=== PATIENT | female | born 1990 | race Caucasian/White ===

== ENCOUNTER 2016-09-06 19:33 | Inpatient (IN) ==
[2016-09-06 20:20] LABS: Bilirubin,Urine Negative (Negative); Blood,Urine Moderate (Negative); Clarity,Urine Turbid (Clear); Color,Urine Dark Yellow (Yellow); Glucose,Urine (UA) Normal (Normal); Ketones,Urine 15 mg/dL (Negative); Leukocyte Esterase,Urine Large (Negative); Nitrite,Urine Negative (Negative); Protein,Urine 100 mg/dL (Neg-Trace); Specific Gravity,Urine 1.026 (1.010-1.025); Urobilinogen,Urine Normal (Normal)
[2016-09-06 20:22] LABS: Bacteria,Urine Few per hpf (None-Few); Hyaline Casts,Urine None Seen per lpf (None-Few); Squamous Epithelial Cell,Urine Many per lpf (None-Few); WBC,Urine TNTC per hpf (0-3)
[2016-09-06 21:26] LABS: Hemoglobin 13.8 g/dL (11.5-15.4)
[2016-09-06 21:27] LABS: Basophils % 0.2 %; Immature Granulocytes % 0.7 % (0-4)
[2016-09-06 21:28] LABS: Basophils # 0.1 K/mcL (0.0-0.2); Eosinophils % 0.1 %; Hematocrit 40.5 % (35.3-44.9); Lymphocytes # 1.6 K/mcL (0.6-4.6); Mean Corpuscular HGB Conc 34.1 g/dL (31.6-35.5); Mean Corpuscular Hemoglobin 30.6 pg (28.0-33.3); Mean Corpuscular Volume 89.8 fL (83.0-100.0); Mean Platelet Volume 10.5 fL (9.4-12.4); Monocytes # 2.3 K/mcL (0.0-1.3); Monocytes % 8.5 %; Platelet Count 201 K/mcL (140-400); Red Blood Count 4.51 M/mcL (3.82-4.97); Segmented Neutrophils % 84.5 %
[2016-09-06 21:47] LABS: Alanine Aminotransferase 80 Units/L (0-55); Albumin 3.8 g/dL (3.5-5.0); Alkaline Phosphatase 88 Units/L (38-126); Amylase 50 Units/L (25-125); Aspartate Amino Transferase 43 Units/L (5-34); BUN/Creatinine Ratio 12 (6-26); Bilirubin,Direct 0.7 mg/dL (0.0-0.5); Bilirubin,Total 1.7 mg/dL (0.2-1.2); Blood Urea Nitrogen 9 mg/dL (7-20); Calcium 9.6 mg/dL (8.6-10.8); Carbon Dioxide 23 mEq/L (19-29); Chloride 105 mEq/L (98-109); Globulin 3.9 g/dL (2.4-3.5); Glucose 108 mg/dL (70-99); Lipase 10 Units/L (8-78); Osmolality,Calculated 285 (280-300); Potassium 3.7 mEq/L (3.5-4.5); Sodium 138 mEq/L (136-145); Total Protein 7.7 g/dL (6.0-8.3); eGFR For African Americans > 60 (> 60); eGFR For Non-African Americans > 60 (> 60)
[2016-09-06] MEDS ORDERED: *HR* FentaNYL (PF) 100 MCG/2 ML VIAL IVP ONE (22:03)
[2016-09-06] MEDS ORDERED: Ondansetron 4 MG/2 ML VIAL IVP ONE (22:03)
[2016-09-06 22:12] LABS: Platelet Estimate Normal (Normal)
--- NOTE | 2016-09-06 23:18 | Emergency Department Note ---
Disposition Clinical Impression: Right ureteral stone, Hydronephrosis, right, Pyelonephritis, Gallstones Disposition: Admitted As Inpatient Condition: Good Referrals: Juju Sue DO [Primary Care Provider] - Forms: Work/School Release, ED Satisfaction Letter Time of Disposition: 23:22 Abdominal Pain HPI - General Chief Complaint: ED Abdominal Pain Stated Complaint: right lower abdominal pain,vomiting fever Time Seen by Provider: 09/06/16 21:52 Source: patient Nursing Notes Reviewed: Yes Vital Signs Reviewed: Yes - History of Present Illness HPI Narrative: 25 of female presents emergency room for right-sided abdominal pain for the past 3 days. Worsening today. Associated with nausea vomiting. She denies any diarrhea. No documented fevers. Pain is gotten to be more persistent in the right lateral abdomen. Pt Subjective Complaint: abdominal pain Onset (ago): day(s) Consistency: constant Location: RLQ Pain Severity: severe Pain Scale: 10 Quality: stabbing Radiation: none Migration to: no migration Improves with: nothing Worsens with: nothing Associated symptoms: Reports: nausea, vomiting. Denies: fever Treatments prior to arrival: none - Related Data Previous Rx's Medication Instructions Recorded Nitrofurantoin (BID) [Macrobid] 100 mg PO BID #14 capsule 03/07/16 Allergies Allergy/AdvReac Type Severity Reaction Status Date / Time hydrocodone Allergy See Verified 09/06/16 19:48 Comments morphine Allergy Rash Verified 03/07/16 11:18 All systems ED: reviewed and negative except as stated. Constitutional: Reports: as per HPI Eyes: Reports: as per HPI Cardiovascular: Denies: chest pain Respiratory: Reports: as per HPI Gastrointestinal: Reports: abdominal pain, nausea, vomiting. Denies: diarrhea Genitourinary: Reports: as per HPI Musculoskeletal: Reports: as per HPI Integumentary: Reports: as per HPI Neurological: Reports: as per HPI Psychiatric: Reports: as per HPI Endocrine: Reports: as per HPI Hematological/Lymphatic: Reports: as per HPI Abdominal Pain PMH - Past Medical History Medical history: Reports: no medical history Female Surgical History: Reports: Adenoidectomy, Tonsillectomy ASSOCIATE ACCOUNT DIRECTOR history: Reports: no ASSOCIATE ACCOUNT DIRECTOR history Psychiatric history: Reports: no psych history - Social History Smoking status: Current every day smoker Alcohol use: Reports: occasionally Drug use: Reports: none Physical Exam - General Limitations: no limitations General appearance: alert, in no apparent distress - Head Head exam: atraumatic, normocephalic - ENT ENT exam: normal exam - Neck Neck exam: Present: normal inspection - Chest Chest inspection: Present: normal inspection - Respiratory Respiratory exam: Present: normal lung sounds bilaterally - Cardiovascular Cardiovascular exam: Present: regular rate, normal rhythm - Abdominal Exam Abdominal exam: Present: soft, tenderness (Patient has tenderness to the right lateral mid abdomen and some to the right upper quadrant. Most of the pain seems to be more distal. Positive guarding) - Extremities Exam Extremities exam: Present: normal inspection - Back Exam Back exam: Present: normal inspection - Neurological Exam Neurological exam: Present: alert, oriented X3 - Psychiatric Psychiatric exam: Present: normal affect, normal mood - Skin Skin exam: Present: warm, dry, intact Course Vital Signs Temperature 98.5 F 09/06/16 19:45 Pulse Rate 125 09/06/16 19:45 Respiratory Rate 16 09/06/16 19:45 Blood Pressure 118/84 09/06/16 19:45 O2 Sat by Pulse Oximetry 99 09/06/16 19:45 Temperature 98.5 F 09/06/16 19:45 Pulse Rate 99 09/06/16 22:21 Respiratory Rate 16 09/06/16 22:21 Blood Pressure 100/70 09/06/16 22:21 O2 Sat by Pulse Oximetry 98 09/06/16 22:21 Oxygen Delivery Oxygen Delivery Room Air Abdominal Pain - MDM Narrative Medical decision making narrative: Patient has evidence of a right ureteral stone with hydronephrosis. She also has a urinary tract infection. Her white count elevated at 27,000. She also has evidence of gallstones and or sludge noted in the gallbladder but no signs on CT of acute cholecystitis. Her LFTs are slightly elevated as well as her bilirubin. I am uncertain as to what is the exact cause of her symptoms at this time. It could either be the ureteral stone or a gallbladder issue. I have started IV Rocephin. Fluids pain control.. Patient will need to be admitted. - Medical Records Medical records reviewed: Yes I reviewed the patient's medical records. - Lab Data Lab results reviewed: Yes I reviewed the patient's lab results. Result diagrams: 09/06/16 21:15 09/06/16 21:15 Lab Results 09/06/16 09/06/1609/06/17 Range/Units 20:08 20:08 21:15 WBC 27.2 H (4.3-11.1) K/mcL RBC 4.51 (3.82-4.97) M/mcL Hgb 13.8 (11.5-15.4) g/dL Hct 40.5 (35.3-44.9) % MCV 89.8 (83.0-100.0) fL MCH 30.6 (28.0-33.3) pg MCHC 34.1 (31.6-35.5) g/dL RDW 12.0 (11.5-14.5) % Plt Count 201 (140-400) K/mcL MPV 10.5 (9.4-12.4) fL Immature Gran % 0.7 (0-4) % Seg Neutrophils % 84.5 % Lymphocytes % 6.0 % Monocytes % 8.5 % Eosinophils % 0.1 % Basophils % 0.2 % Neutrophils # 23.0 H (1.6-8.9) K/mcL Lymphocytes # 1.6 (0.6-4.6) K/mcL Monocytes # 2.3 H (0.0-1.3) K/mcL Eosinophils # 0.0 (0.0-0.6) K/mcL Basophils # 0.1 (0.0-0.2) K/mcL Platelet Estimate Normal (Normal) Sodium (136-145) mEq/L Potassium (3.5-4.5) mEq/L Chloride (98-109) mEq/L Carbon Dioxide (19-29) mEq/L BUN (7-20) mg/dL Creatinine (0.57-1.11) mg/dL Est GFR ( Amer) (> 60) Est GFR (Non-Af Amer) (> 60) BUN/Creatinine Ratio (6-26) Glucose (70-99) mg/dL Calculated Osmolality (280-300) Calcium (8.6-10.8) mg/dL Total Bilirubin (0.2-1.2) mg/dL Direct Bilirubin (0.0-0.5) mg/dL Indirect Bilirubin (0.0-1.2) mg/dL AST (5-34) Units/L ALT (0-55) Units/L Alkaline Phosphatase (38-126) Units/L Serum Total Protein (6.0-8.3) g/dL Albumin (3.5-5.0) g/dL Globulin (2.4-3.5) g/dL Albumin/Globulin Ratio (1.1-2.2) Amylase (25-125) Units/L Lipase (8-78) Units/L Urine Color Dark Yellow (Yellow) Urine Clarity Turbid A (Clear) Urine pH 6.0 (5.0-8.0) pH Units Ur Specific [place] 1.026 H (1.010-1.025) Urine Protein 100 H (Neg-Trace) mg/dL Urine Glucose (UA) Normal (Normal) mg/dL Urine Ketones 15 H (Negative) mg/dL Urine Blood Moderate H (Negative) Urine Nitrite Negative (Negative) Urine Bilirubin Negative (Negative) Urine Urobilinogen Normal (Normal) mg/dL Ur Leukocyte Esterase Large H (Negative) Urine Microscopic RBC 5-15 H (0-3) per hpf Urine Microscopic WBC TNTC H (0-3) per hpf Ur Squamous Epith Cells Many H (None-Few) per lpf Urine Bacteria Few (None-Few) per hpf Hyaline Casts None Seen (None-Few) per lpf Urine Test Negative (Negative) 09/06/16 Range/Units 21:15 WBC (4.3-11.1) K/mcL RBC (3.82-4.97) M/mcL Hgb (11.5-15.4) g/dL Hct (35.3-44.9) % MCV (83.0-100.0) fL MCH (28.0-33.3) pg MCHC (31.6-35.5) g/dL RDW (11.5-14.5) % Plt Count (140-400) K/mcL MPV (9.4-12.4) fL Immature Gran % (0-4) % Seg Neutrophils % % Lymphocytes % % Monocytes % % Eosinophils % % Basophils % % Neutrophils # (1.6-8.9) K/mcL Lymphocytes # (0.6-4.6) K/mcL Monocytes # (0.0-1.3) K/mcL Eosinophils # (0.0-0.6) K/mcL Basophils # (0.0-0.2) K/mcL Platelet Estimate (Normal) Sodium 138 (136-145) mEq/L Potassium 3.7 (3.5-4.5) mEq/L Chloride 105 (98-109) mEq/L Carbon Dioxide 23 (19-29) mEq/L BUN 9 (7-20) mg/dL Creatinine 0.78 (0.57-1.11) mg/dL Est GFR ( Amer) > 60 (> 60) Est GFR (Non-Af Amer) > 60 (> 60) BUN/Creatinine Ratio 12 (6-26) Glucose 108 H (70-99) mg/dL Calculated Osmolality 285 (280-300) Calcium 9.6 (8.6-10.8) mg/dL Total Bilirubin 1.7 H (0.2-1.2) mg/dL Direct Bilirubin 0.7 H (0.0-0.5) mg/dL Indirect Bilirubin 1.0 (0.0-1.2) mg/dL AST 43 H (5-34) Units/L ALT 80 H (0-55) Units/L Alkaline Phosphatase 88 (38-126) Units/L Serum Total Protein 7.7 (6.0-8.3) g/dL Albumin 3.8 (3.5-5.0) g/dL Globulin 3.9 H (2.4-3.5) g/dL Albumin/Globulin Ratio 1.0 L (1.1-2.2) Amylase 50 (25-125) Units/L Lipase 10 (8-78) Units/L Urine Color (Yellow) Urine Clarity (Clear) Urine pH (5.0-8.0) pH Units Ur Specific [place] (1.010-1.025) Urine Protein (Neg-Trace) mg/dL Urine Glucose (UA) (Normal) mg/dL Urine Ketones (Negative) mg/dL Urine Blood (Negative) Urine Nitrite (Negative) Urine Bilirubin (Negative) Urine Urobilinogen (Normal) mg/dL Ur Leukocyte Esterase (Negative) Urine Microscopic RBC (0-3) per hpf Urine Microscopic WBC (0-3) per hpf Ur Squamous Epith Cells (None-Few) per lpf Urine Bacteria (None-Few) per hpf Hyaline Casts (None-Few) per lpf Urine Test (Negative) - Radiology Data Radiology results reviewed: Yes I reviewed the patient's radiology results.
[2016-09-06] MEDS ORDERED: 0.9 % Sodium Chloride 1,000 ML IVC ONE (23:31)
[2016-09-07] MEDS ORDERED: *HR* HYDROmorphone (PF) 1 MG/ML SYRINGE IVP ONE
[2016-09-07] MEDS ORDERED: *HR* HYDROmorphone (PF) 1 MG/ML SYRINGE ONE ×2 (00:18→14:41)
[2016-09-07] MEDS ORDERED: Ketorolac 30 MG/ML VIAL IVP PRN ×3 (00:30→14:39)
[2016-09-07] MEDS ORDERED: Acetaminophen 325 MG TABLET PO PRN (00:30)
[2016-09-07] MEDS ORDERED: Naloxone 0.4 MG/ML INJ IVP PRN (00:30)
--- NOTE | 2016-09-07 00:36 | Internal Med History&Physical ---
Date of Encounter: 09/07/16 Time of Encounter: 00:34 Assessment and Plan (1) Sepsis Current visit: Yes Status: Acute Secondary to possible acute pyelonephritis/UTI versus possible acute cholecystitis (very symptomatic) Nephrolithiasis with acute hydronephrosis Start Rocephin and Flagyl Blood cultures, urine cultures, nothing by mouth, IV fluids, Toradol and Dilaudid for pain Consult urology Order abdominal right upper quadrant ultrasound, consider surgery consult Protonix IV for GI prophylaxis and subcutaneous heparin for DVT prophylaxis. Admitted as inpatient, expected to stay more than 2 midnights. Full code. Time spent on this admission 40 minutes. High risk due to sepsis Qualifiers: Sepsis type: sepsis due to unspecified organism Qualified Code(s): A41.9 - Sepsis, unspecified organism (2) Tobacco abuse Current visit: Yes Status: Acute Smoking cessation counseling given for 5 minutes. Nicotine patch ordered (3) Depression Current visit: Yes Status: Acute Continue paroxetine Qualifiers: Depression Type: major depressive disorder Major depression recurrence: recurrent Active/Remission status: remission status unspecified Qualified Code(s): F33.9 - Major depressive disorder, recurrent, unspecified (4) Dehydration Current visit: Yes Status: Acute Secondary to sepsis and intractable vomiting (5) Right ureteral stone Current visit: Yes Status: Acute Consult urology (6) Hydronephrosis, right Current visit: Yes Status: Acute (7) Pyelonephritis Current visit: Yes Status: Acute (8) Gallstones Current visit: Yes Status: Acute Plan as stated above Internal Medicine - H&P: HPI Chief complaint: Abdominal pain Admitted From: Emergency Dept History of present illness: Ms. Luis is a 25 year old female with a past medical history of tobacco use, recurrent urinary tract infections, depression. Came to the emergency room complaining of 3 days of right lower quadrant pain and also right upper quadrant pain accompanied by nausea or vomiting, has not been able to keep anything down since yesterday. The pain is described as 10 out of 10, sharp, does not improve with movement. Her white blood cell count was 27.2 had a fever of 99.9 heart rate is 99 blood pressure 100/70 bilirubin total is 1.7 and direct bilirubin 0.7 AST 43 ALT 80. Denies any dysuria but the the UA shows white blood cell count toner numerous to count and ketones. CT scan shows 0.2 cm stone distal right ureter with mild hydronephrosis, small gallstones and sludge in the gallbladder. Free pelvic fluid the possible ruptured ovarian follicle. The pain is excruciating according to the patient, she was started on Rocephin at the emergency room. Has been having chills Past Med Surg Social Fam HX - Past Medical History Medical history: other (Tobacco use, recurrent urinary tract infections last one with Escherichia coli resistant only to ampicillin and sulbactam. Depression and anxiety) Psychiatric history: no psych history - Past Surgical History Surgical History: other (Adenoidectomy and tonsillectomy) - Social History Smoking Status: Current every day smoker Packs per day: Half a pack per day Smokeless Tobacco Status: No Alcohol use: occasionally Drug use: none - Additional Family History Additional family history: Father with myocardial infarction in his 30s, hypertension. Mother and sister with kidney problems, her sister had 3 kidneys Internal Medicine - H&P: Meds Nitrofurantoin (BID) [Macrobid] 100 mg PO BID #14 capsule 03/07/16 [Rx] Allergies hydrocodone Allergy (Verified 09/06/16 19:48) See Comments morphine Allergy (Verified 03/07/16 11:18) Rash All Systems PM: A 10-system review of systems was performed and is negative for pertinent findings except as documented above in the HPI. Review of systems: Continue to have abdominal pain, nausea, other systems out of the ten reviewed are negative, no diarrhea - Constitutional Vitals: Temp Pulse Resp BP Pulse Ox 98.5 F 88 16 0/0 99 09/06/16 19:45 09/06/16 23:42 09/06/16 23:44 09/06/16 23:44 09/06/16 23:42 General appearance: Present: A&O X 3 - Head Head exam: Present: atraumatic, normocephalic - Eye Eye exam: Present: PERRL, conjuntiva pink, sclera anicteric Pupils: Present: PERRL Additional comments: Dry mucosa - Neck Neck exam general surgery: Present: supple, trachea midline. Absent: lymphadenopathy - Respiratory Respiratory exam: Present: CTAB. Absent: accessory muscle use, rales, rhonchi, wheezes - Cardiovascular Cardiovascular exam: Present: RRR, +S1, +S2, tachycardia. Absent: diastolic murmur, gallop, rubs, systolic murmur - GI/Abdominal GI/Abdominal exam: Present: normal bowel sounds, soft, tenderness (Weber sign is positive), no peritoneal signs. Absent: distended - Extremities Exam Extremities exam: Present: warm, radial pulses palpable and symetrical. Absent : calf tenderness, cyanotic, pedal edema - Neurological Exam Neurological exam: Present: CN II-XII intact, oriented X3, no focal deficits. Absent: pronater drift, facial droop, speech deficit - Skin Skin exam: Present: dry, intact Internal Med - H&P Results - Labs CBC & Chem 7: 09/06/16 21:15 09/06/16 21:15
[2016-09-07] MEDS: Pantoprazole 40 MG VIAL IVP SCH ×2 (00:58→09:40)
[2016-09-07] MEDS: Nicotine 21 MG PATCH.TD24 TD SCH ×2 (00:58→09:40)
[2016-09-07] MEDS: 0.9 % Sodium Chloride 1,000 ML IVC SCH ×3 (00:58→11:06)
[2016-09-07] MEDS: Ondansetron 4 MG/2 ML VIAL IVP PRN ×3 (01:29→12:53)
[2016-09-07 03:24] LABS: Hematocrit 38.2 % (35.3-44.9); Hemoglobin 12.7 g/dL (11.5-15.4); Mean Corpuscular HGB Conc 33.2 g/dL (31.6-35.5); Mean Corpuscular Hemoglobin 29.8 pg (28.0-33.3); Mean Corpuscular Volume 89.7 fL (83.0-100.0); Mean Platelet Volume 10.8 fL (9.4-12.4); Platelet Count 187 K/mcL (140-400); Red Blood Count 4.26 M/mcL (3.82-4.97)
[2016-09-07] MEDS: *HR* HYDROmorphone (PF) 1 MG/ML SYRINGE IVP PRN ×4 (03:31→23:00)
[2016-09-07 03:46] LABS: Alanine Aminotransferase 73 Units/L (0-55); Albumin 3.5 g/dL (3.5-5.0); Albumin/Globulin Ratio 0.9 (1.1-2.2); Alkaline Phosphatase 79 Units/L (38-126); Aspartate Amino Transferase 36 Units/L (5-34); BUN/Creatinine Ratio 11 (6-26); Bilirubin,Total 1.2 mg/dL (0.2-1.2); Blood Urea Nitrogen 8 mg/dL (7-20); Calcium 8.8 mg/dL (8.6-10.8); Carbon Dioxide 23 mEq/L (19-29); Chloride 105 mEq/L (98-109); Chol/HDL Ratio 2.9 (0-4.9); Cholesterol 97 mg/dL (< 200); Globulin 3.8 g/dL (2.4-3.5); Glucose 112 mg/dL (70-99); HDL Cholesterol 34 mg/dL (40-59); LDL Cholesterol,Calculated 48 mg/dL (0-99); Osmolality,Calculated 281 (280-300); Potassium 3.3 mEq/L (3.5-4.5); Sodium 136 mEq/L (136-145); Total Protein 7.3 g/dL (6.0-8.3); Triglycerides 74 mg/dL (< 150); eGFR For African Americans > 60 (> 60); eGFR For Non-African Americans > 60 (> 60)
[2016-09-07] MEDS: *HR* Heparin 5,000 UNIT/ML VIAL SQ SCH ×2 (06:39→18:17)
[2016-09-07] MEDS: MetroNIDAZOLE 500 MG/100 ML 500 MG/100 ML BAG IVPB SCH ×3 (09:45→23:32)
[2016-09-07] MEDS ORDERED: Potassium Chloride Elixir 20 MEQ/15 ML UDC PO ONE (10:51)
[2016-09-07] MEDS ORDERED: *HR* OxyCODONE/APAP 5/325 TABLET PO PRN (11:26)
--- NOTE | 2016-09-07 13:10 | Urology - Consult Note ---
Date of Encounter: 09/07/16 Time of Encounter: 13:09 - Assessment and Plan (1) Hydronephrosis, right Current Visit: Yes Status: Acute Assessment and plan: Very mild unlikely secondary to distal right ureteral stone (2) Right ureteral stone Current Visit: Yes Status: Acute Assessment and plan: Patient's pain is very atypical for her right-sided distal ureteral stone. If patient's pain has not improved by tomorrow we will plan on repeating CT pelvis to evaluate for status of distal right 1 mm ureteral stone. Urology CN:HPI Consult date: 09/07/16 Reason for consult Urology: Other (right distal ureteral stone) Requesting physician: Mohan Hirsch History of present illness: Trina is a 25 y/o female with history of RUQ abdominal pain since last tuesday. The patient states that the pain was a 10/10 yesterday and that is why she came to the ED. pain is worse with eating. + nausea. + fevers at home. WBC is elevated. Patient had CT scan done which revealed distal 1 mm ureteral stone. This is on the right side. Patient has very mild right-sided hydroureter. Past Med Surg Social Fam HX - Past Medical History Medical history: other Psychiatric history: anxiety, depression - Past Surgical History Surgical History: other - Social History Smoking Status: Current every day smoker Packs per day: Half a pack per day Smokeless Tobacco Status: No Alcohol use: occasionally Drug use: none - Family History Mother Hx Family GI Disorders: (Cholecystectomy) Father Hx Family Cardiac Disorders: Yes (NM, HTN) Medications and Allergies Acetaminophen [Tylenol] 1,000 mg PO Q6HR PRN 09/07/16 [History] Ibuprofen [Motrin] 1,200 mg PO Q6HR PRN 09/07/16 [History] Levonorgestrel [Mirena] 52 mg IY AD 09/07/16 [History] Paroxetine HCl [Paxil] 20 mg PO DAILY 09/07/16 [History] Allergies hydrocodone Allergy (Verified 09/06/16 19:48) See Comments morphine Allergy (Verified 03/07/16 11:18) Rash Review of Systems - Constitutional fever(s), no chills - EENT Nose, mouth and throat: no dizziness - Cardiovascular no chest pain - Respiratory no cough - Gastrointestinal abdominal pain - Musculoskeletal no back pain - Integumentary no erythema - Neurological no confusion Exam Initial Vital Signs Temp Pulse Resp BP Pulse Ox 98.5 F 125 16 118/84 99 09/06/16 19:45 09/06/16 19:45 09/06/16 19:45 09/06/16 19:45 09/06/16 19:45 - General physical appearance Present: well developed - Eyes Present: PERRL - ENT Present: normal nares - Neck Present: no masses - Respiratory Present: normal respiratory effort - Abdomen Abdomen: Present: soft (pain on palpation of ruq) Urology Results - Labs 09/07/16 01:47 09/07/16 01:47 Abnormal lab results WBC 23.6 K/mcL (4.3-11.1) H 09/07/16 01:47 Neutrophils # 23.0 K/mcL (1.6-8.9) H 09/06/16 21:15 Monocytes # 2.3 K/mcL (0.0-1.3) H 09/06/16 21:15 Potassium 3.3 mEq/L (3.5-4.5) L 09/07/16 01:47 Glucose 112 mg/dL (70-99) H 09/07/16 01:47 Direct Bilirubin 0.7 mg/dL (0.0-0.5) H 09/06/16 21:15 AST 36 Units/L (5-34) H 09/07/16 01:47 ALT 73 Units/L (0-55) H 09/07/16 01:47 Globulin 3.8 g/dL (2.4-3.5) H 09/07/16 01:47 Albumin/Globulin Ratio 0.9 (1.1-2.2) L 09/07/16 01:47 HDL Cholesterol 34 mg/dL (40-59) L 09/07/16 01:47 Urine Clarity Turbid (Clear) A 09/06/16 20:08 Ur Specific [place] 1.026 (1.010-1.025) H 09/06/16 20:08 Urine Protein 100 mg/dL (Neg-Trace) H 09/06/16 20:08 Urine Ketones 15 mg/dL (Negative) H 09/06/16 20:08 Urine Blood Moderate (Negative) H 09/06/16 20:08 Ur Leukocyte Esterase Large (Negative) H 09/06/16 20:08 Urine Microscopic RBC 5-15 per hpf (0-3) H 09/06/16 20:08 Urine Microscopic WBC TNTC per hpf (0-3) H 09/06/16 20:08 Ur Squamous Epith Cells Many per lpf (None-Few) H 09/06/16 20:08 Diabetes panel 09/07/16 Range/Units 01:47 Sodium 136 (136-145) mEq/L Potassium 3.3 L (3.5-4.5) mEq/L Chloride 105 (98-109) mEq/L Carbon Dioxide 23 (19-29) mEq/L BUN 8 (7-20) mg/dL Creatinine 0.74 (0.57-1.11) mg/dL Glucose 112 H (70-99) mg/dL Calcium 8.8 (8.6-10.8) mg/dL AST 36 H (5-34) Units/L ALT 73 H (0-55) Units/L Alkaline Phosphatase 79 (38-126) Units/L Albumin 3.5 (3.5-5.0) g/dL Triglycerides 74 (< 150) mg/dL HDL Cholesterol 34 L (40-59) mg/dL Calcium panel 09/07/16 Range/Units 01:47 Calcium 8.8 (8.6-10.8) mg/dL Albumin 3.5 (3.5-5.0) g/dL Pituitary panel 09/07/16 Range/Units 01:47 Sodium 136 (136-145) mEq/L Potassium 3.3 L (3.5-4.5) mEq/L Chloride 105 (98-109) mEq/L Carbon Dioxide 23 (19-29) mEq/L BUN 8 (7-20) mg/dL Creatinine 0.74 (0.57-1.11) mg/dL Glucose 112 H (70-99) mg/dL Calcium 8.8 (8.6-10.8) mg/dL Adrenal panel 09/07/16 Range/Units 01:47 Sodium 136 (136-145) mEq/L Potassium 3.3 L (3.5-4.5) mEq/L Chloride 105 (98-109) mEq/L Carbon Dioxide 23 (19-29) mEq/L BUN 8 (7-20) mg/dL Creatinine 0.74 (0.57-1.11) mg/dL Glucose 112 H (70-99) mg/dL Calcium 8.8 (8.6-10.8) mg/dL Total Bilirubin 1.2 (0.2-1.2) mg/dL AST 36 H (5-34) Units/L ALT 73 H (0-55) Units/L Alkaline Phosphatase 79 (38-126) Units/L Albumin 3.5 (3.5-5.0) g/dL All other labs normal. - Imaging CT scan - abdomen: image reviewed CT scan - pelvis: image reviewed Consult Discharge Plan - Plan Referrals: Kelly Juan DO [Resident] - 09/16/16 10:20 am (covering for Dr. Sue)
[2016-09-07] MEDS ORDERED: *HR* HYDROmorphone (PF) 1 MG/ML SYRINGE IVP PRN ×2 (14:38→14:45)
[2016-09-07] MEDS: Ketorolac 30 MG/ML VIAL IVP PRN (16:49)
--- NOTE | 2016-09-07 17:07 | Event Note ---
Date of Encounter: 09/07/16 Time of Encounter: 11:10 25-year-old female with no significant past medical history, admitted with right -sided abdominal pain. Patient seen and examined at bedside. Continues to report severe right-sided abdominal pain, in upper and lower quadrants, associated with significant nausea. Alert, awake and oriented 3. Chest-S1, S2 heard. Lungs are clear to auscultation bilaterally. Abdomen is soft with severe tenderness in right lower quadrant with voluntary guarding, no rigidity. No suprapubic tenderness. Labs reviewed-significant for leukocytosis, mild hypokalemia with potassium 3, slightly elevated AST/80, now improving. CT abdomen/pelvis showed gallstones/gallbladder sludge, 2 mm right ureteral stone with mild right hydroureteronephrosis. Right upper quadrant ultrasound shows gallbladder sludge with no evidence of cholecystitis. Sepsis, likely secondary to UTI/right-sided hydronephrosis, ureteral stone- continue aggressive IV hydration and empiric IV antibiotics. Pain control with when necessary IV Dilaudid and Toradol. Urology consult appreciated, patient's symptoms do not correlate with a small nonobstructive ureteral stone. We will plan on repeating pelvic CT in a.m. to evaluate for gynecologic causes and to recheck ureteral stone. We will also consider MRCP. Continue supportive care and diet as tolerated.
[2016-09-08] MEDS: *HR* HYDROmorphone (PF) 1 MG/ML SYRINGE IVP PRN ×7 (01:38→21:55)
[2016-09-08] MEDS: Ondansetron 4 MG/2 ML VIAL IVP PRN ×2 (01:38→06:42)
[2016-09-08] MEDS: *HR* Heparin 5,000 UNIT/ML VIAL SQ SCH (04:51)
[2016-09-08 05:10] LABS: Basophils % 0.2 %; Eosinophils # 0.1 K/mcL (0.0-0.6); Eosinophils % 0.8 %; Immature Granulocytes % 0.4 % (0-4); Lymphocytes # 1.6 K/mcL (0.6-4.6); Lymphocytes % 12.6 %; Mean Corpuscular HGB Conc 32.8 g/dL (31.6-35.5); Mean Corpuscular Hemoglobin 29.9 pg (28.0-33.3); Mean Corpuscular Volume 91.2 fL (83.0-100.0); Mean Platelet Volume 10.9 fL (9.4-12.4); Monocytes # 1.1 K/mcL (0.0-1.3); Monocytes % 8.8 %; Neutrophils # 9.8 K/mcL (1.6-8.9); Platelet Count 151 K/mcL (140-400); Red Blood Count 3.51 M/mcL (3.82-4.97); Segmented Neutrophils % 77.2 %
[2016-09-08 05:11] LABS: Hemoglobin 10.5 g/dL (11.5-15.4)
[2016-09-08 05:23] LABS: Albumin/Globulin Ratio 0.9 (1.1-2.2); Bilirubin,Direct 0.4 mg/dL (0.0-0.5); Bilirubin,Indirect 0.3 mg/dL (0.0-1.2); Bilirubin,Total 0.7 mg/dL (0.2-1.2); Magnesium 1.3 mg/dL (1.6-2.6)
[2016-09-08 05:24] LABS: Alanine Aminotransferase 53 Units/L (0-55); Albumin 2.7 g/dL (3.5-5.0); Albumin/Globulin Ratio 0.9 (1.1-2.2); Alkaline Phosphatase 67 Units/L (38-126); Aspartate Amino Transferase 33 Units/L (5-34); BUN/Creatinine Ratio 7 (6-26); Bilirubin,Total 0.7 mg/dL (0.2-1.2); Calcium 8.3 mg/dL (8.6-10.8); Carbon Dioxide 20 mEq/L (19-29); Chloride 108 mEq/L (98-109); Glucose 92 mg/dL (70-99); Osmolality,Calculated 275 (280-300); Potassium 3.6 mEq/L (3.5-4.5); Sodium 134 mEq/L (136-145); Total Protein 5.7 g/dL (6.0-8.3); eGFR For African Americans > 60 (> 60); eGFR For Non-African Americans > 60 (> 60)
[2016-09-08 05:35] LABS: Albumin 2.7 g/dL (3.5-5.0); Blood Urea Nitrogen 5 mg/dL (7-20); Total Protein 5.7 g/dL (6.0-8.3)
--- NOTE | 2016-09-08 08:59 | Internal Med Progress Note ---
Date of Encounter: 09/08/16 Time of Encounter: 08:30 - Assessment and plan (1) Sepsis Current Visit: Yes Status: Acute Assessment and plan: Pt remains tachycardic and has continued but improved leukocytosis. Continue IV fluids and supportive care. Abx changed to Zosyn to cover GI tract. Qualifiers: Sepsis type: sepsis due to unspecified organism Qualified Code(s): A41.9 - Sepsis, unspecified organism (2) Abdominal pain Current Visit: Yes Status: Acute Assessment and plan: Has cholelithiasis on imaging. I am concerned that this is an acute gallbladder issue. Pt made NPO. Surgery consult today. Qualifiers: Abdominal location: right upper quadrant Qualified Code(s): R10.11 - Right upper quadrant pain (3) Gallstones Current Visit: Yes Status: Acute Assessment and plan: Surgical evaluation today (4) Right ureteral stone Current Visit: Yes Status: Resolved Assessment and plan: Resolved on repeat CT. (5) Depression Current Visit: Yes Status: Chronic Assessment and plan: On her home meds. Qualifiers: Depression Type: major depressive disorder Major depression recurrence: recurrent Active/Remission status: remission status unspecified Qualified Code(s): F33.9 - Major depressive disorder, recurrent, unspecified (6) Tobacco abuse Current Visit: Yes Status: Chronic Assessment and plan: Cessation counselling. - Subjective Interval history: Ms Luis is currently admitted for sepsis related to possible gallbladder disease versus renal stone versus other. She is moderate to high risk due to potential for worsening infectious status. Ms. Luis is having a lot of abdominal pain still. She is not hungry and is nauseous. Still has documented fever. WBC has improved with abx. Feels swollen everywhere. - Constitutional Vitals: Temp Pulse Resp BP Pulse Ox 99 F 105 16 109/67 92 09/08/16 06:29 09/08/16 06:29 09/08/16 06:29 09/08/16 06:29 09/08/16 06:29 General appearance: Present: A&O X 3 - Head Head exam: Present: normocephalic - Eye Eye exam: Present: EOMI, conjuntiva pink - ENT ENT exam: Present: mucous membranes dry - Respiratory Respiratory exam: Present: CTAB. Absent: rhonchi, wheezes - Cardiovascular Cardiovascular exam: Present: tachycardia Additional comments: Regular rhythm. - GI/Abdominal GI/Abdominal exam: Present: distended, soft, tenderness Additional comments: Significant tenderness to even minimal palpation on exam. Pain is RUQ area. No rebound at this time but has voluntary guarding. - Extremities Exam Extremities exam: Present: warm. Absent: tenderness Additional comments: Mild non pitting edema throughout. - Neurological Exam Neurological exam: Present: alert, oriented X3, no focal deficits - Psychiatric Psychiatric exam: Present: anxious - Skin Skin exam: Present: warm. Absent: rash Internal Medicine: Result - Labs CBC & Chem 7: 09/08/16 04:41 09/08/16 04:41 Labs: Short CBC 09/08/16 Range/Units 04:41 WBC 12.7 H (4.3-11.1) K/mcL Hgb 10.5 L D (11.5-15.4) g/dL Hct 32.0 L (35.3-44.9) % Plt Count 151 (140-400) K/mcL Neutrophils # 9.8 H (1.6-8.9) K/mcL BMP 09/08/16 04:41 Sodium 134 L Potassium 3.6 Chloride 108 Carbon Dioxide 20 BUN 5 L Creatinine 0.68 Glucose 92 Calcium 8.3 L Liver Function 09/08/16 09/08/16 Range/Units 04:41 04:41 Total Bilirubin 0.7 0.7 (0.2-1.2) mg/dL Direct Bilirubin 0.4 (0.0-0.5) mg/dL AST 33 33 (5-34) Units/L ALT 53 53 (0-55) Units/L Alkaline Phosphatase 67 65 (38-126) Units/L Albumin 2.7 L D 2.7 L (3.5-5.0) g/dL - Impressions Impressions Abdomen Ultrasound 09/07/16 09:00 IMPRESSION: Small amounts of mobile sludge and small nonshadowing punctate gallstones. No evidence of acute cholecystitis. Common bile duct at the upper limit of normal for size, without intrahepatic biliary dilation. D/ / 09/07/2016 10:05:54 Jamison Mensah MD / Neelima Patel Interpreting Provider: Jamison Mensah MD Consult Discharge Plan - Plan Referrals: Kelly Juan DO [Resident] - 09/16/16 10:20 am (covering for Dr. Sue)
[2016-09-08] MEDS: Nicotine 21 MG PATCH.TD24 TD SCH (09:12)
[2016-09-08] MEDS: Piperacillin/Tazobactam 3.375 GM in D5% in Water (Mini-Bag+) 100 ML IVPB SCH ×2 (09:13→16:42)
[2016-09-08] MEDS: Ketorolac 30 MG/ML VIAL IVP PRN (09:19)
[2016-09-08] MEDS ORDERED: Magnesium Sulfate 2 GM in D5% in Water 100 ML IVPB ONE (09:45)
--- NOTE | 2016-09-08 12:19 | Anesthesia Evaluation PreOp ---
Date of Encounter: 09/08/16 Time of Encounter: 12:17 - Past History Planned Operation: LapChidi arredondo. Pulmonary History: Smoker, Pack/yr (1/2 ppd) CLINICAL OPERATIONS MANAGER History: Other (Depression/Anxiety) Other Medical History: Renal (Stone) Anesthesia History: Past Anesthesia (T&A) : No Test: Negative (09/06/2016) Alcohol Use: occasionally Drug use: none Medications and Allergies Acetaminophen [Tylenol] 1,000 mg PO Q6HR PRN 09/07/16 [History] Ibuprofen [Motrin] 1,200 mg PO Q6HR PRN 09/07/16 [History] Levonorgestrel [Mirena] 52 mg IY AD 09/07/16 [History] Paroxetine HCl [Paxil] 20 mg PO DAILY 09/07/16 [History] Allergies hydrocodone Allergy (Verified 09/06/16 19:48) See Comments morphine Allergy (Verified 03/07/16 11:18) Rash - Meds/Allergy Pre-op Review Medications Reviewed: Yes Allergies Reviewed: Yes Beta Blockers on Current Med List: No Anesthesia Results - Labs 09/08/16 04:41 09/08/16 04:41 Laboratory Tests 09/06/16 09/08/16 09/08/16 20:08 04:41 04:41 WBC 12.7 H Hgb 10.5 L D Hct 32.0 L Plt Count 151 Sodium 134 L Potassium 3.6 Chloride 108 Carbon Dioxide 20 BUN 5 L Creatinine 0.68 Urine Test Negative Anesthesia Exam O2 Sat Weight 61.054 kg O2 Sat by Pulse Oximetry 94 O2 Sat by Pulse Oximetry 92 O2 Sat by Pulse Oximetry 99 O2 Sat by Pulse Oximetry 97 O2 Sat by Pulse Oximetry 98 O2 Sat by Pulse Oximetry 97 Vital Signs Temp Pulse Resp BP Pulse Ox 98.5 F 125 16 118/84 99 09/06/16 19:45 09/06/16 19:45 09/06/16 19:45 09/06/16 19:45 09/06/16 19:45 Vital Signs/O2 Sat, Most Current Temp Pulse Resp BP Pulse Ox 98.4 F 82 16 108/71 94 09/08/16 10:31 09/08/16 10:31 09/08/16 10:31 09/08/16 10:31 09/08/16 10:31 Height: 5'3'' Weight: 134# NPO (# of Hours): > 8 hrs Pain Scale: 0 Pain Scale Used: Numeric (1 - 10) - HEENT Pupil (Motor): Pupils equal, EOMI Mallampati: II Teeth: Normal Oral Opening: Greater than 3 - CLINICAL OPERATIONS MANAGER LOC: Oriented CLINICAL OPERATIONS MANAGER Motor: Normal RUE, Normal LUE, Normal RLE, Normal LLE, Normal Face CLINICAL OPERATIONS MANAGER Sensory: Normal: RUE, LUE, RLE, LLE, Face - Cardiac Rhythm: Regular Murmur: None JVD: No Carotid Bruit: No - Pulmonary Breath Sounds: bilateral Clear Respiratory Effort: Symmetrical Anesthesia Assess/Plan ASA Score: 2 Modified Udall Scale for Level of Consciousness: Cooperative, oriented, and tranquil Anesthetic Plan: General Autologous Blood: Yes Monitoring Plan: Standard Monitors Recovery Plan: PACU
--- NOTE | 2016-09-08 12:49 | General Surgery Consult Note ---
Date of Encounter: 09/08/16 Time of Encounter: 11:30 Assessment and Plan (1) Symptomatic cholelithiasis Current Visit: Yes Status: Acute Nothing by mouth IV fluids Empiric IV antibiotic therapy- Zosyn Supportive care and pain control Incentive spirometer every 1 hour while awake Risks, benefits, alternatives, expected outcomes reviewed with the patient she is agreement to proceed to the operating room with Dr. Owens for a laparoscopic cholecystectomy with cholangiogram (2) Leukocytosis Current Visit: Yes Status: Acute Improving 23.6>12.7 IV antibiotics- Zosyn Repeat a.m. labs Qualifiers: Leukocytosis type: unspecified Qualified Code(s): D72.829 - Elevated white blood cell count, unspecified (3) DVT prophylaxis Current Visit: Yes Status: Acute EPCDs to bilateral lower extremities for DVT prophylaxis Ambulate hallways 3 times a day History of Present Illness Consult date: 09/08/16 Reason for consult: other (RUQ pain; cholelithiasis) Requesting physician: Gama Poon History of present illness: Ms. Luis is a 25-year-old female who presented to the hospital with complaints of abdominal discomfort. She states the pain started 4 days ago and is located in the right upper quadrant. She states that this pain is severe. She states that she feels that she has had similar types of pain in the past but never to this severity. She states that this episode of pain started after attempting to eat a cheeseburger. She did have associated nausea and vomiting which she states is ongoing. She admits to fevers and chills. Denies any changes in bowel habits. Admits to abdominal bloating. Denies any chest pain or shortness of breath. Denies any difficulty with urination. We have been asked to see and evaluate the patient for her ongoing right upper quadrant abdominal pain. She has had a right upper quadrant abdominal ultrasound which shows evidence of cholelithiasis and gallbladder sludge. Past Med Surg Social Fam HX - Past Medical History Source: patient, old records reviewed Medical history: other Psychiatric history: anxiety, depression - Past Surgical History Surgical History: other (T&A) - Social History Smoking Status: Current every day smoker Packs per day: Half a pack per day Smokeless Tobacco Status: No Alcohol use: occasionally Drug use: none Current living situation: Home - Independent Activity Level: Independent ambulation - Family History Mother Hx Family GI Disorders: (Cholecystectomy) Father Hx Family Cardiac Disorders: Yes ([place], HTN) Medications and Allergies Acetaminophen [Tylenol] 1,000 mg PO Q6HR PRN 09/07/16 [History] Ibuprofen [Motrin] 1,200 mg PO Q6HR PRN 09/07/16 [History] Levonorgestrel [Mirena] 52 mg IY AD 09/07/16 [History] Paroxetine HCl [Paxil] 20 mg PO DAILY 09/07/16 [History] Allergies hydrocodone Allergy (Verified 09/06/16 19:48) See Comments morphine Allergy (Verified 03/07/16 11:18) Rash Review of Systems All systems PM: reviewed and no additional remarkable complaints except as stated (in the HPI) All systems PM: A 10-system review of systems was performed and is negative for pertinent findings except as documented above in the HPI. General Surgery Exam Initial Vital Signs Temp Pulse Resp BP Pulse Ox 98.5 F 125 16 118/84 99 09/06/16 19:45 09/06/16 19:45 09/06/16 19:45 09/06/16 19:45 09/06/16 19:45 - General physical appearance well developed, well nourished, moderate pain - Eyes normal ocular movement - ENT normal mucosa, atraumatic, normocephalic - Neck trachea midline - Respiratory normal respiratory effort, clear to auscultation - Cardiovascular Cardiovascular exam: Present: RRR, 15, 16 - Abdomen Abdomen general surgery: Present: bowel sounds present, soft, tender Abdominal Tenderness: Present: epigastic, RUQ - Integumentary Integumentary general surgery: Present: warm and dry - Neurologic Present: CN 2-12 grossly intact - Musculoskeletal Present: normal gait, normal posture - Psychiatric Psychiatric general surgery: Present: appropriate, oriented to person, oriented to place, oriented to time, speech is normal, memory intact Exam Initial Vital Signs Temp Pulse Resp BP Pulse Ox 98.5 F 125 16 118/84 99 09/06/16 19:45 09/06/16 19:45 09/06/16 19:45 09/06/16 19:45 09/06/16 19:45 Results - Labs 09/08/16 04:41 09/08/16 04:41 Abnormal lab results WBC 12.7 K/mcL (4.3-11.1) H 06/14/17 04:41 RBC 3.51 M/mcL (3.82-4.97) L 09/08/16 04:41 Hgb 10.5 g/dL (11.5-15.4) L D 09/08/16 04:41 Hct 32.0 % (35.3-44.9) L 09/08/16 04:41 Neutrophils # 9.8 K/mcL (1.6-8.9) H 09/08/16 04:41 Sodium 134 mEq/L (136-145) L 09/08/16 04:41 BUN 5 mg/dL (7-20) L 09/08/16 04:41 Calculated Osmolality 275 (280-300) L 09/08/16 04:41 Calcium 8.3 mg/dL (8.6-10.8) L 09/08/16 04:41 Magnesium 1.3 mg/dL (1.6-2.6) L 09/08/16 04:41 Serum Total Protein 5.7 g/dL (6.0-8.3) L 09/08/16 04:41 Albumin 2.7 g/dL (3.5-5.0) L 09/08/16 04:41 Albumin/Globulin Ratio 0.9 (1.1-2.2) L 09/08/16 04:41 HDL Cholesterol 34 mg/dL (40-59) L 09/07/16 01:47 Urine Clarity Turbid (Clear) A 09/06/16 20:08 Ur Specific Green 1.026 (1.010-1.025) H 09/06/16 20:08 Urine Protein 100 mg/dL (Neg-Trace) H 09/06/16 20:08 Urine Ketones 15 mg/dL (Negative) H 09/06/16 20:08 Urine Blood Moderate (Negative) H 09/06/16 20:08 Ur Leukocyte Esterase Large (Negative) H 09/06/16 20:08 Urine Microscopic RBC 5-15 per hpf (0-3) H 09/06/16 20:08 Urine Microscopic WBC TNTC per hpf (0-3) H 09/06/16 20:08 Ur Squamous Epith Cells Many per lpf (None-Few) H 09/06/16 20:08 Diabetes panel 09/08/16 09/08/16 Range/Units 04:41 04:41 Sodium 134 L (136-145) mEq/L Potassium 3.6 (3.5-4.5) mEq/L Chloride 108 (98-109) mEq/L Carbon Dioxide 20 (19-29) mEq/L BUN 5 L (7-20) mg/dL Creatinine 0.68 (0.57-1.11) mg/dL Glucose 92 (70-99) mg/dL Calcium 8.3 L (8.6-10.8) mg/dL AST 33 33 (5-34) Units/L ALT 53 53 (0-55) Units/L Alkaline Phosphatase 67 65 (38-126) Units/L Albumin 2.7 L D 2.7 L (3.5-5.0) g/dL Calcium panel 09/08/16 09/08/16 Range/Units 04:41 04:41 Calcium 8.3 L (8.6-10.8) mg/dL Albumin 2.7 L D 2.7 L (3.5-5.0) g/dL Pituitary panel 09/08/16 Range/Units 04:41 Sodium 134 L (136-145) mEq/L Potassium 3.6 (3.5-4.5) mEq/L Chloride 108 (98-109) mEq/L Carbon Dioxide 20 (19-29) mEq/L BUN 5 L (7-20) mg/dL Creatinine 0.68 (0.57-1.11) mg/dL Glucose 92 (70-99) mg/dL Calcium 8.3 L (8.6-10.8) mg/dL Adrenal panel 09/08/16 09/08/16 Range/Units 04:41 04:41 Sodium 134 L (136-145) mEq/L Potassium 3.6 (3.5-4.5) mEq/L Chloride 108 (98-109) mEq/L Carbon Dioxide 20 (19-29) mEq/L BUN 5 L (7-20) mg/dL Creatinine 0.68 (0.57-1.11) mg/dL Glucose 92 (70-99) mg/dL Calcium 8.3 L (8.6-10.8) mg/dL Total Bilirubin 0.7 0.7 (0.2-1.2) mg/dL AST 33 33 (5-34) Units/L ALT 53 53 (0-55) Units/L Alkaline Phosphatase 67 65 (38-126) Units/L Albumin 2.7 L D 2.7 L (3.5-5.0) g/dL All other labs normal. - Imaging CT scan - abdomen: report reviewed CT scan - pelvis: report reviewed US - abdomen: report reviewed Additional studies: Abdomen/Pelvis CT 09/06/16 22:02 IMPRESSION: 1. A 0.2 cm stone in the distal right ureter with mild right hydroureteronephrosis. 2. Findings suggestive of small gallstones or gallbladder sludge. No CT evidence of cholecystitis. 3. Small nonspecific free fluid in the pelvis may be related to ruptured ovarian follicle. D/ / 09/06/2016 23:01:23 Jasvir Bond MD / [email or web address] Interpreting Provider: Jasvir Bond MD Abdomen Ultrasound 09/07/16 09:00 IMPRESSION: Small amounts of mobile sludge and small nonshadowing punctate gallstones. No evidence of acute cholecystitis. Common bile duct at the upper limit of normal for size, without intrahepatic biliary dilation. D/ / 09/07/2016 10:05:54 Jamison Mensah MD / Neelima Patel Interpreting Provider: Jamison Mensah MD Pelvis CT 09/08/16 08:34 IMPRESSION: Previously identified punctate calculus in the distal right ureter is no longer visualized. Small amount of free fluid in the pelvis has increased since the prior examination. Findings are nonspecific, but may be physiologic. D/ / 09/08/2016 10:37:28 Naga Hudson MD / [email or web address] Interpreting Provider: Naga Hudson MD Consult Discharge Plan - Plan Referrals: Kelly Juan DO [Resident] - 09/16/16 10:20 am (covering for Dr. Sue) - Attending Attestation I examined this patient and my medical decision-making was reviewed with the EXTRUSION OPERATOR/PA/Advanced Practice Nurse/Resident Physician. I agree with the documented findings, disposition and treatment plan as described except to the extent set forth below.
--- NOTE | 2016-09-08 12:52 | Urology Progress Note ---
Date of Encounter: 09/08/16 Time of Encounter: 12:48 - Assessment and Plan (1) Hydronephrosis, right Current Visit: Yes Status: Acute (2) Right ureteral stone Current Visit: Yes Status: Resolved Assessment and plan: patient passed stone. dietary modifications discussed with patient. f/u with me PRN. Progress Note Narrative: Patient seen. still with pain. ct pelvis showed stone has passed. still with RUQ pain. + fevers. Objective Initial Vital Signs Temp Pulse Resp BP Pulse Ox 98.5 F 125 16 118/84 99 09/06/16 19:45 09/06/16 19:45 09/06/16 19:45 09/06/16 19:45 09/06/16 19:45 - General physical appearance Present: well developed - Abdomen Present: soft (right upper quadrant pain with palpation) - Labs 09/08/16 04:41 09/08/16 04:41 Diabetes panel 09/08/16 09/08/16 Range/Units 04:41 04:41 Sodium 134 L (136-145) mEq/L Potassium 3.6 (3.5-4.5) mEq/L Chloride 108 (98-109) mEq/L Carbon Dioxide 20 (19-29) mEq/L BUN 5 L (7-20) mg/dL Creatinine 0.68 (0.57-1.11) mg/dL Glucose 92 (70-99) mg/dL Calcium 8.3 L (8.6-10.8) mg/dL AST 33 33 (5-34) Units/L ALT 53 53 (0-55) Units/L Alkaline Phosphatase 67 65 (38-126) Units/L Albumin 2.7 L D 2.7 L (3.5-5.0) g/dL Calcium panel 09/08/16 09/08/16 Range/Units 04:41 04:41 Calcium 8.3 L (8.6-10.8) mg/dL Albumin 2.7 L D 2.7 L (3.5-5.0) g/dL Pituitary panel 09/08/16 Range/Units 04:41 Sodium 134 L (136-145) mEq/L Potassium 3.6 (3.5-4.5) mEq/L Chloride 108 (98-109) mEq/L Carbon Dioxide 20 (19-29) mEq/L BUN 5 L (7-20) mg/dL Creatinine 0.68 (0.57-1.11) mg/dL Glucose 92 (70-99) mg/dL Calcium 8.3 L (8.6-10.8) mg/dL Adrenal panel 09/08/16 09/08/16 Range/Units 04:41 04:41 Sodium 134 L (136-145) mEq/L Potassium 3.6 (3.5-4.5) mEq/L Chloride 108 (98-109) mEq/L Carbon Dioxide 20 (19-29) mEq/L BUN 5 L (7-20) mg/dL Creatinine 0.68 (0.57-1.11) mg/dL Glucose 92 (70-99) mg/dL Calcium 8.3 L (8.6-10.8) mg/dL Total Bilirubin 0.7 0.7 (0.2-1.2) mg/dL AST 33 33 (5-34) Units/L ALT 53 53 (0-55) Units/L Alkaline Phosphatase 67 65 (38-126) Units/L Albumin 2.7 L D 2.7 L (3.5-5.0) g/dL Consult Discharge Plan - Plan Referrals: Kelly Juan DO [Resident] - 09/16/16 10:20 am (covering for Dr. Sue)
[2016-09-08] MEDS ORDERED: *HR* Propofol 200 MG/20 ML VIAL IVP ONE ×2 (13:37→13:41)
[2016-09-08] MEDS ORDERED: Dexamethasone 4 MG/ML VIAL ONE (13:37)
[2016-09-08] MEDS ORDERED: *HR* Rocuronium Bromide 50 MG/5 ML VIAL ONE (13:37)
[2016-09-08] MEDS ORDERED: Lidocaine -MPF 2% 2 ML VIAL ONE (13:37)
[2016-09-08] MEDS ORDERED: Ondansetron 4 MG/2 ML VIAL ONE (13:37)
[2016-09-08] MEDS ORDERED: *HR* FentaNYL (PF) 100 MCG/2 ML VIAL ONE ×2 (13:37→13:40)
[2016-09-08] MEDS ORDERED: *HR* Succinylcholine 200 MG/10 ML VIAL IVP ONE (13:37)
[2016-09-08] MEDS ORDERED: Lidocaine -MPF 4% 5 ML AMPUL ONE (13:37)
[2016-09-08] MEDS ORDERED: Neostigmine Methylsulfate 3 MG/3 ML SYRINGE ONE ×2 (13:37→14:40)
[2016-09-08] MEDS ORDERED: *HR* HYDROmorphone (PF) 1 MG/ML SYRINGE IVP PRN (14:04)
[2016-09-08] MEDS ORDERED: *HR* Promethazine 25 MG/ML VIAL IVP PRN (14:04)
--- NOTE | 2016-09-08 14:04 | Operative Note ---
Date of procedure: 09/08/16 Pre-op diagnosis: Acute cholecystitis Post-op diagnosis: same Procedure: Laparoscopic cholecystectomy with cholangiogram Anesthesia: RIVER Surgeon: Joni Owens Estimated blood loss (cc): 5 Specimen: Gallbladder Condition: stable Disposition: same day Procedure in Detail: After informed consent this patient was taken the operating room placed supine position. After adequate sedation anesthesia the abdomen was prepped and draped. A proper timeout was performed. Two towel clamps are placed at the umbilicus and a Veres needle was inserted into the abdomen. A 5 mm incision was made at the umbilicus. A 12 mm incision was made in the subxiphoid region. Two 5 mm incisions were made in the right upper quadrant that were 4 finger breadths and 6 finger breadths below the costal margin. The gallbladder was identified, retracted anteriorly and cephalad, and the infundibulum was skeletonized. The cystic duct was easily identified and was dissected free. A ductotomy was created in the cystic duct. A taut catheter was placed within the cystic duct and clipped. A cholangiogram was performed. Contrast filled the cystic duct, common hepatic duct, hepatic radicles, and the distal common bile duct. There was flow of contrast into the duodenum. Once this was confirmed the clippers removed, the taut catheter was removed as well, and the cystic duct was clipped distally. The cystic duct was then transected with scissors. The gallbladder was resected off the liver surface. There was excellent hemostasis. The gallbladder was then retrieved through the 12 mm cannula site. At this point the abdomen was suctioned dry and the pneumoperitoneum was then evacuated. All ports were removed. The 12 mm cannula site was closed with an 0 Vicryl suture in [id number] fashion. The skin was closed with 4-0 Vicryl suture. Dermabond was placed as well. All instrument counts and needle counts are correct in the operation. The patient tolerated the procedure well and was transferred to the PACU in stable condition.
--- NOTE | 2016-09-08 15:36 | Anesthesia Evaluation Post Op ---
Date of Encounter: 09/08/16 Time of Encounter: 15:35 - Vital Signs Vital Signs: Vital Signs/O2 Sat/Glucose, Most Recent Temp Pulse Resp BP Pulse Ox 97.0 F L 77 14 109/75 100 09/08/16 15:22 09/08/16 15:22 09/08/16 15:22 09/08/16 15:22 09/08/16 15:22 - Lungs Lungs: Clear Ascult./Percussion - Airway Airway: Non-obstructed - Cardiovascular Regular Rate - Mental Status Mental Status: Alert & Oriented, Answers Appropriately - Pain Pain Scale: 0 Pain Scale used: Numeric (1 - 10) - Nausea Vomiting Nausea Vomiting: Not Present - Hydration Hydration: Ice chips Notes: 09/08/16 15:35 AAOx3, VSS with no complaints - Discharge PostOp Status: Transfer Patient to floor
[2016-09-08] MEDS: 0.9 % Sodium Chloride 1,000 ML IVC SCH ×3 (17:15→19:51)
[2016-09-09] MEDS: Piperacillin/Tazobactam 3.375 GM in D5% in Water (Mini-Bag+) 100 ML IVPB SCH ×2 (00:45→08:40)
[2016-09-09] MEDS: *HR* HYDROmorphone (PF) 1 MG/ML SYRINGE IVP PRN ×4 (00:45→09:01)
[2016-09-09 05:05] LABS: Hematocrit 32.7 % (35.3-44.9); Hemoglobin 11.1 g/dL (11.5-15.4); Mean Corpuscular HGB Conc 33.9 g/dL (31.6-35.5); Mean Corpuscular Hemoglobin 30.4 pg (28.0-33.3); Mean Corpuscular Volume 89.6 fL (83.0-100.0); Platelet Count 162 K/mcL (140-400); Red Blood Count 3.65 M/mcL (3.82-4.97); Red Cell Distribution Width 11.9 % (11.5-14.5)
[2016-09-09 05:24] LABS: Alanine Aminotransferase 57 Units/L (0-55); Albumin 2.8 g/dL (3.5-5.0); Albumin/Globulin Ratio 0.8 (1.1-2.2); Alkaline Phosphatase 62 Units/L (38-126); Aspartate Amino Transferase 40 Units/L (5-34); BUN/Creatinine Ratio 7 (6-26); Bilirubin,Total 0.4 mg/dL (0.2-1.2); Calcium 8.7 mg/dL (8.6-10.8); Carbon Dioxide 23 mEq/L (19-29); Chloride 109 mEq/L (98-109); Globulin 3.5 g/dL (2.4-3.5); Glucose 172 mg/dL (70-99); Magnesium 1.7 mg/dL (1.6-2.6); Osmolality,Calculated 287 (280-300); Potassium 3.8 mEq/L (3.5-4.5); Sodium 138 mEq/L (136-145); Total Protein 6.3 g/dL (6.0-8.3); eGFR For African Americans > 60 (> 60); eGFR For Non-African Americans > 60 (> 60)
[2016-09-09 05:31] LABS: Blood Urea Nitrogen 5 mg/dL (7-20)
[2016-09-09] MEDS: 0.9 % Sodium Chloride 1,000 ML IVC SCH (07:02)
[2016-09-09] MEDS: Nicotine 21 MG PATCH.TD24 TD SCH (08:40)
[2016-09-09 11:17] VITALS: BP 99/65
[2016-09-09] MEDS ORDERED: *HR* OxyCODONE/APAP 10/325 TABLET PO PRN ×2 (11:35→13:03)
[2016-09-09] MEDS ORDERED: Cefdinir 300 MG CAPSULE PO SCH (11:45)
--- NOTE | 2016-09-09 11:48 | Discharge Summary ---
Date of Encounter: 09/09/16 Time of Encounter: 11:47 - Discharge Diagnosis (1) Symptomatic cholelithiasis Priority: Primary Status: Acute (2) Hydronephrosis, right Priority: Primary Status: Acute (3) Sepsis Priority: Primary Status: Acute Qualifiers: Sepsis type: sepsis due to unspecified organism Qualified Code(s): A41.9 - Sepsis, unspecified organism (4) Depression Priority: Secondary Status: Chronic Qualifiers: Depression Type: major depressive disorder Major depression recurrence: recurrent Active/Remission status: remission status unspecified Qualified Code(s): F33.9 - Major depressive disorder, recurrent, unspecified (5) Tobacco abuse Priority: Secondary Status: Chronic - Discharge Medications Prescriptions: OxyCODONE/APAP 10/325 [Percocet 10/325 MG] 1 each PO Q6HR PRN #20 tablet PRN Reason: Moderate-Severe Pain Cefdinir [Omnicef] 300 mg PO BID #10 capsule metroNIDAZOLE [Flagyl] 500 mg PO TID #15 tablet Home Medications: Acetaminophen [Tylenol] 1,000 mg PO Q6HR PRN 09/07/16 [History] Ibuprofen [Motrin] 1,200 mg PO Q6HR PRN 09/07/16 [History] Levonorgestrel [Mirena] 52 mg IY AD 09/07/16 [History] Paroxetine HCl [Paxil] 20 mg PO DAILY 09/07/16 [History] Acetaminophen [Tylenol] 650 mg PO Q6HR PRN #0 tablet 09/09/16 [Rx] Cefdinir [Omnicef] 300 mg PO BID #10 capsule 09/09/16 [Rx] OxyCODONE/APAP 10/325 [Percocet 10/325 MG] 1 each PO Q6HR PRN #20 tablet [Rx] metroNIDAZOLE [Flagyl] 500 mg PO TID #15 tablet 09/09/16 [Rx] Allergies/Adverse Reactions: Allergies hydrocodone Allergy (Verified 09/06/16 19:48) See Comments morphine Allergy (Verified 03/07/16 11:18) Rash Procedures/tests Complete & Pending: Procedures Performed prior 72 hours Category Date Time Status CT pelvis wo no iv no oral [CT] Stat Cat Scan 09/08/16 08:34 Draft Date of admission: 09/07/16 00:47 Primary care physician: Juju Sue DO Consults: 09/08/16 08:38 Consult to Surgery [CONS] Routine Consulting Provider: Joni Owens Reason for Consult: Abd pain - ? gallbladder Time Notified: 08:35 Call Completed: Yes Discharging clinician: Jose Garland Anticipated date of discharge: 09/09/16 - Patient Status Disposition: Home, Self-Care Condition: Good Functional capacity at discharge: independent ambulation Overall status at discharge: patient is back to baseline - Discharge Instructions Follow Up With: Kelly Juan DO [Resident] - 09/16/16 10:20 am (covering for Dr. Sue) - Diet and Activity Activity: resume usual activities as tolerated Diet: regular diet Interval History: See below Hospital course: Ms. Luis is a 25 year old female with no significant past medical history, admitted with sepsis, right-sided abdominal pain with diagnoses of R hydronephrosis, R nephrolithiasis and incidenta finding of cholelithiasis Labs on admission significant for leukocytosis, mild hypokalemia mild transaminitis CT abdomen/pelvis showed gallstones/gallbladder sludge, 2 mm right ureteral stone with mild right hydroureteronephrosis. Right upper quadrant ultrasound shows gallbladder sludge with no evidence of cholecystitis. Patient was admitted and managed for Sepsis, likely secondary to UTI/right- sided hydronephrosis, urolithiasis, symptomatic cholelithiasis She was started on Zosyn empirically, Genral Surgery and Urology were consulted Patient spontaneously passed the ureteral stone with symptomatic relief She underwent Laparoscopic Cholecystectomy 09/08/16 She was seen at bedside with family this morning, in no form of distress, clinically stable and ambulatory, her Leukocytosis has resolved and she is afebrile, physical exam is unremarkable, she is passing flatus and has normal bowel sounds. She is clinically stable to be discharged I spoke with general surgeon who agreed with plan patient is discharged on pain control medications, Flagyl and Omnicef Tobacco cessation counselling done for 3 minutes Time spent discussing smoking cessation with patient: 3 to 10 minutes - Time Spent with Patient Total time spent providing and/or coordinating discharge services: Less than 30 minutes - Constitutional Vitals: Temp Pulse Resp BP Pulse Ox 98.0 F 73 17 99/65 98 09/09/16 11:15 09/09/16 11:15 09/09/16 11:15 09/09/16 11:15 09/09/16 11:15 General appearance: Present: A&O X 3, pleasant, no acute distress - Head Head exam: Present: atraumatic, normocephalic - Eye Eye exam: Present: PERRL, conjuntiva pink, sclera anicteric Pupils: Present: PERRL - Neck Neck exam general surgery: Present: supple, trachea midline. Absent: lymphadenopathy - Respiratory Respiratory exam: Present: CTAB. Absent: accessory muscle use, rales, rhonchi, wheezes - Cardiovascular Cardiovascular exam: Present: RRR, +S1, +S2. Absent: diastolic murmur, gallop, rubs, systolic murmur - GI/Abdominal GI/Abdominal exam: Present: normal bowel sounds, soft, no peritoneal signs. Absent: distended, tenderness Additional comments: Scars, clean wound - Extremities Exam Extremities exam: Present: warm, radial pulses palpable and symetrical. Absent : calf tenderness, cyanotic, pedal edema - Neurological Exam Neurological exam: Present: CN II-XII intact, oriented X3, no focal deficits. Absent: pronater drift, facial droop, speech deficit - VTE Documentation of Mechanical Device: Intermittent pneumatic compression device
[2016-09-09] MEDS ORDERED: metroNIDAZOLE 500 MG TABLET PO SCH (15:00)
== END 2016-09-09 14:39 | disposition home or self-care (01) | DRG 710 ==
LOC: 2ANU 19:33 → EMEROO 19:33 → 2ANU 09-07 00:22 → SUATTDRO 09-07 00:47
PROVIDERS: ADMIT Internal Medicine; ATTEND Internal Medicine

== ENCOUNTER 2018-09-19 09:19 | Observation (INO) ==
[2018-09-19 10:15] VITALS: BP 109/82
[2018-09-19 10:29] LABS: Bilirubin,Urine Negative (Negative); Blood,Urine Negative (Negative); Clarity,Urine Cloudy (Clear); Color,Urine Yellow (Yellow); Glucose,Urine (UA) Normal (Normal); Ketones,Urine Negative (Negative); Leukocyte Esterase,Urine Large (Negative); Nitrite,Urine Negative (Negative); PH,Urine 6.5 pH Units (5.0-8.0); Protein,Urine Negative (Neg-Trace); Specific Gravity,Urine 1.021 (1.010-1.025); Urobilinogen,Urine Normal (Normal)
[2018-09-19 10:31] LABS: Bacteria,Urine Many per hpf (None-Few); Hyaline Casts,Urine None Seen per lpf (None-Few); RBC,Urine 0-3 per hpf (0-3); Squamous Epithelial Cell,Urine Many per lpf (None-Few); WBC,Urine TNTC per hpf (0-3)
[2018-09-19 10:39] LABS: Amphetamine Screen,Urine Negative ng/mL (Cutoff=1000); Barbiturate Screen,Urine Negative ng/mL (Cutoff=200); Benzodiazepines Screen,Urine Negative ng/mL (Cutoff=200); Cannabinoid Screen,Urine Negative ng/mL (Cutoff = 50); Cocaine Screen,Urine Negative ng/mL (Cutoff= 300); Opiate Screen,Urine Negative ng/mL (Cutoff=300); Phencyclidine Screen,Urine Negative ng/mL (Cutoff=25)
--- NOTE | 2018-09-19 13:01 | OB/GYN Progress Note ---
Date of Encounter: 09/19/18 Time of Encounter: 12:57 - Assessment and Plan (1) 35 weeks gestation of Current Visit: Yes Status: Acute NST reactive Urine normal Back strain - recommended maternity support belt, urgent care physician, massage, heat/cold application, good body mechanics with lifting No change in serial cervical exams Discharge home with PTL precautions Follow up in office with routine care and PRN POC per consult with Dr Rodarte (2) Muscle strain Current Visit: Yes Status: Acute Subjective - Subjective Principal diagnosis: Lower abdominal pain Interval history: Ms Luis is a at 35 weeks and 4 days that presents to triage with c/o pain in her back, contractions, and pelvis/vaginal area that began yesterday after lifting a 40 pound bag of bird food. She states she had labor with a term delivery with her previous . She states positive movement. She denies headaches, vision changes, epigastric pain, leaking of fluid, vaginal discharge, and vaginal bleeding. She is seen by Dr Menjivar for her care. Antepartum ROS: movement normal, contractions Objective - Vital Signs Vital Signs: Vital Signs Temp Pulse Resp BP 09/19/18 10:11 98.0 F 106 14 109/82 - Exam FHR: auscultation normal FHR comments: Baseline 155 moderate variability and 15 x 15 accels one late decel noted - continued monitoring x 2 hours without any additional decels Contractions every 2-8 minutes; palpate soft Abdomen: Present: normal appearance, gravid Uterus: Present: normal. Absent: firm, tenderness Cervical dilation: 2 station: Ballottable Comments: Lower back tenderness with palpation - Labs Labs: Abnormal lab results Cloudy (Clear) A 09/19/18 10:11 Ur Leukocyte Esterase Large (Negative) H 09/19/18 10:11 TNTC per hpf (0-3) H 09/19/18 10:11 Ur Squamous Epith Cells Many per lpf (None-Few) H 09/19/18 10:11 Many per hpf (None-Few) H 09/19/18 10:11
== END 2018-09-19 13:36 | disposition home or self-care (01) ==
LOC: 1NENULAB
PROVIDERS: ADMIT Advanced Practice Midwife; ATTEND Advanced Practice Midwife

== ENCOUNTER 2018-09-20 21:25 | Observation (INO) ==
[2018-09-20 21:54] LABS: Amphetamine Screen,Urine Negative ng/mL (Cutoff=1000); Barbiturate Screen,Urine Negative ng/mL (Cutoff=200); Benzodiazepines Screen,Urine Negative ng/mL (Cutoff=200); Cannabinoid Screen,Urine Negative ng/mL (Cutoff = 50); Cocaine Screen,Urine Negative ng/mL (Cutoff= 300); Opiate Screen,Urine Negative ng/mL (Cutoff=300); Phencyclidine Screen,Urine Negative ng/mL (Cutoff=25)
--- NOTE | 2018-09-20 22:12 | OB/GYN Progress Note ---
Date of Encounter: 09/20/18 Time of Encounter: 22:08 - Assessment and Plan (1) 35 weeks gestation of Current Visit: No Status: Acute (2) Abdominal pain affecting Current Visit: Yes Status: Acute Pt reports pain in pelvis. No contractions on toco. Pain is associated with movement while I was present in the room. SVE unchanged from exam in triage yesterday. Discharge home with precautions. Subjective - Subjective Principal diagnosis: contractions, mucus plug Interval history: 27 year-old presenting at 35w5d with c/o contractions and mucus plug. Pt reports that she lost her mucus plug at about 7pm. Since that time she has been feeling pressure type pains in her lower abdomen about every 3-5 minutes. She denies leaking or bleeding. Good FM. Antepartum ROS: movement normal, contractions, no loss of fluid, no vaginal bleeding Objective - Vital Signs Vital Signs: Intake and Output 09/20/18 09/20/18 09/20/18 07:59 15:59 23:59 Other: Weight 65.045 kg Patient Weight 09/20/18 23:59 Weight 65.045 kg - Exam FHR: category 1 FHR comments: 145 BPM and reactive NST Auscultation: bilateral: normal Abdomen: Present: soft, gravid Uterus: Present: normal. Absent: tenderness Cervical dilation: 2.5cm, unchanged from visit yesterday
== END 2018-09-20 22:43 | disposition home or self-care (01) ==
LOC: 1NENULAB
PROVIDERS: ADMIT Registered Nurse; ATTEND Registered Nurse

== ENCOUNTER 2018-09-29 16:44 | Inpatient (IN) ==
--- NOTE | 2018-09-29 13:58 | OB/GYN Progress Note ---
Date of Encounter: 09/29/18 Time of Encounter: 13:55 - Assessment and Plan (1) 37 weeks gestation of Current Visit: Yes Status: Acute Urinalysis - contaminated Serial vaginal exams - change made IV rehydration per patient request Admit for labor POC per consult with Dr Rodarte (2) NST (non-stress test) reactive Current Visit: Yes Status: Acute Subjective - Subjective Principal diagnosis: Contractions Interval history: Ms Luis is a at 37 weeks and 0 days that presents to triage with c/o vaginal leaking that began last night and contractions, lower back pain, and vaginal pain that began this morning. She is unable to quantify how frequently her contractions are occurring because she is only able to focus on her vaginal pain. She states she cannot drink as it makes her have nausea. She states positive movement. She denies headaches, vaginal bleeding, epigastric pain, and visual disturbances She is seen by Dr Menjivar for her care and denies any complications with this . Antepartum ROS: movement normal, contractions (lower back pain and vaginal pain) Objective - Vital Signs Vital Signs: Intake and Output 09/28/18 09/29/18 09/29/18 23:59 07:59 15:59 Other: Weight 64.5 kg Patient Weight 09/29/18 23:59 Weight 64.5 kg - Exam FHR: auscultation normal, category 1 FHR comments: FHTs baseline 150 with moderate variability and 15x 15 accels and no decels Uterine irritability per [place]. Uterus palpates soft Abdomen: Present: normal appearance, soft, gravid. Absent: tenderness Uterus: Present: normal. Absent: firm Cervical dilation: 4 Cervix effacement: 70-80 station: -2 Comments: SSE - pooling negative, nitrazine negative, large amount of mucous in vaginal vault
[2018-09-29 14:04] LABS: Bilirubin,Urine Negative (Negative); Blood,Urine Negative (Negative); Clarity,Urine Cloudy (Clear); Color,Urine Yellow (Yellow); Glucose,Urine (UA) Normal (Normal); Ketones,Urine Negative (Negative); Leukocyte Esterase,Urine Small (Negative); Nitrite,Urine Negative (Negative); Protein,Urine Negative (Neg-Trace); Specific Gravity,Urine 1.022 (1.010-1.025); Urobilinogen,Urine Normal (Normal)
[2018-09-29 14:07] LABS: Bacteria,Urine Moderate per hpf (None-Few); Hyaline Casts,Urine None Seen per lpf (None-Few); RBC,Urine 0-3 per hpf (0-3); Squamous Epithelial Cell,Urine Many per lpf (None-Few)
[2018-09-29 14:11] LABS: Amphetamine Screen,Urine Negative ng/mL (Cutoff=1000); Barbiturate Screen,Urine Negative ng/mL (Cutoff=200); Benzodiazepines Screen,Urine Negative ng/mL (Cutoff=200); Cannabinoid Screen,Urine Negative ng/mL (Cutoff = 50); Cocaine Screen,Urine Negative ng/mL (Cutoff= 300); Opiate Screen,Urine Negative ng/mL (Cutoff=300); Phencyclidine Screen,Urine Negative ng/mL (Cutoff=25)
[~2018-09-29 16:44] MED LIST: *HR* Nalbuphine 10 MG/ML AMPUL IV PRN; Famotidine 20 MG/2 ML VIAL IVP PRN; Lidocaine 1% 20 ML MDV INFILT PRN; Metoclopramide 10 MG/2 ML VIAL IVP PRN; Naloxone 0.4 MG/ML INJ IVP PRN; Ondansetron 4 MG/2 ML VIAL IVP PRN; Ringers Solution, Lactated 1,000 ML IVC ONE
[2018-09-29] MEDS ORDERED: Ringers Solution, Lactated 1,000 ML IVC SCH (16:45)
--- NOTE | 2018-09-29 16:52 | OB/GYN History & Physical ---
Date of Encounter: 09/29/18 Time of Encounter: 16:48 Assessment and Plan (1) 37 weeks gestation of Current visit: Yes Status: Acute Admit for labor GBS negative Patient may have epidural upon request Augmentation with pitocin and consider AROM Anticipate vaginal delivery POC per consult with Dr Rodarte History of Present Illness Chief complaint: Labor HPI: Ms Luis is a at 37 weeks and 0 days that presents to triage with c/o vaginal leaking that began last night and contractions, lower back pain, and vaginal pain that began this morning. She is unable to quantify how frequently her contractions are occurring because she is only able to focus on her vaginal pain. She states she cannot drink as it makes her have nausea. She states positive movement. She denies headaches, vaginal bleeding, epigastric pain, and visual disturbances She is seen by Dr Menjivar for her care and denies any complications with this . Pain has increased since initial assessment and cervix has changed. Patient is laboring. Late decelerations noted in the past 2 hours; discussed with Dr Rodarte. Agreed to augment labor. GBS Neg HIV Neg RPR Neg Hep B Neg Rubella Immune Varicella Immune Blood Type A+ Past Med Surg Social Fam HX - Past Medical History Medical history: no medical history Additional medical history: restless legs Psychiatric history: anxiety, depression - Past Surgical History Surgical History: cholecystectomy, other Additional surgical history: T&A - Social History Smoking Status: Current every day smoker Packs per day: 6 cigs/daily Smokeless Tobacco Status: No Alcohol use: none Drug use: none - Family History Father Living Status: Still Living Hx Family Cardiac Disorders: Yes (htn) Hx Family Respiratory Disorders: No Hx Family Cancer: No Hx Family GI Disorders: No Hx Family Endocrine Disorder: No Hx Family Neuromuscular Disorders: No Hx Family Neurologic Disorders: No Hx Family HEENT Disorders: No Hx Family Autoimmune Disorders: No Mother Hx Family GI Disorders: (Cholecystectomy) Obstetrical History - Pregnancies : 3 Para: 1 Term: 0 : 1 Ab's: 1 Livin Medications and Allergies Caplet 1 tab PO DAILY 07/20/18 [History] Allergy/AdvReac Type Severity Reaction Status Date / Time hydrocodone Allergy Hives Verified 09/29/18 13:48 morphine Allergy Rash Verified 09/29/18 13:48 Review of System OB All systems PM: reviewed and no additional remarkable complaints except as stated Exam - Constitutional Constitutional: well developed, well nourished, no acute distress, moderate dis tress - HEENT HEENT: Normocephaly, Mucus Membranes Moist - Abdomen Abdomen: Present: gravid, non tender - Extremities Extremities exam: normal capillary refill, normal inspection, radial pulses palpable and symmetrical Deep Tendon Reflex Grade: 2+ Normal - Vulva Vulva: bilateral: normal - Vagina Vagina: Present: normal moisture - Cervix Dilation: 5 Effacement: 80 Station: -2 - Anus/Rectum Anus/Rectum: Present: normal perianal skin Results Abnormal lab results Cloudy (Clear) A 09/29/18 13:52 Ur Leukocyte Esterase Small (Negative) H 09/29/18 13:52 5-15 per hpf (0-3) H 09/29/18 13:52 Ur Squamous Epith Cells Many per lpf (None-Few) H 09/29/18 13:52 Moderate per hpf (None-Few) H 09/29/18 13:52 Ur Culture Indicated? YES (NO) A 09/29/18 13:52 All other labs normal. - VTE Reasons for not Prescribing Prophylaxis: Treatment not Indicated - Low risk for VTE
[2018-09-29] MEDS ORDERED: Epidural Premix (fent/bupiv) 110 ML EP ONE (16:56)
[2018-09-29] MEDS ORDERED: Oxytocin 20 units/ LR 1000 mL 20 UNIT/1,000 ML BAG IVC SCH (17:00)
[2018-09-29 17:01] LABS: Basophils # 0.1 K/mcL (0.0-0.2); Basophils % 0.3 %; Eosinophils # 0.2 K/mcL (0.0-0.6); Eosinophils % 1.1 %; Hematocrit 35.2 % (35.3-44.9); Hemoglobin 11.7 g/dL (11.5-15.4); Immature Granulocytes % 1.2 % (0-4); Lymphocytes # 3.8 K/mcL (0.6-4.6); Lymphocytes % 20.1 %; Mean Corpuscular HGB Conc 33.2 g/dL (31.6-35.5); Mean Corpuscular Volume 93.4 fL (83.0-100.0); Mean Platelet Volume 11.2 fL (9.4-12.4); Monocytes # 1.1 K/mcL (0.0-1.3); Monocytes % 5.7 %; Neutrophils # 13.4 K/mcL (1.6-8.9); Platelet Count 324 K/mcL (140-400); Red Blood Count 3.77 M/mcL (3.82-4.97); Red Cell Distribution Width 13.1 % (11.5-14.5); Segmented Neutrophils % 71.6 %; White Blood Count 18.7 K/mcL (4.3-11.1)
--- NOTE | 2018-09-29 17:27 | Anesthesia Evaluation PreOp ---
Date of Encounter: 09/29/18 Time of Encounter: 17:01 - Past History Planned Operation: Del, spont, 37wks Cardiac History: Denies any Significant Hx Pulmonary History: Smoker [employer] History: Other (past IV drug abuse, herion, cocaine reported,) Anesthesia History: No Prior Anesthetic Complications, Past Anesthesia (denies any comp, and any family comp) Alcohol Use: none Drug use: none Medications and Allergies Caplet 1 tab PO DAILY 07/20/18 [History] Allergy/AdvReac Type Severity Reaction Status Date / Time hydrocodone Allergy Hives Verified 09/29/18 13:48 morphine Allergy Rash Verified 09/29/18 13:48 Anesthesia Results - Labs 09/29/18 14:00 Anesthesia Exam - HEENT Pupil (Motor): Pupils equal Mallampati: II Teeth: Normal Oral Opening: Greater than 3 - [employer] LOC: Oriented [employer] Motor: Normal RUE, Normal LUE, Normal RLE, Normal LLE, Normal Face [employer] Sensory: Normal: RUE, LUE, RLE, LLE, Face - Cardiac Rhythm: Regular Murmur: None - Pulmonary Breath Sounds: bilateral Clear Respiratory Effort: Symmetrical Anesthesia Assess/Plan ASA Score: 2 Level of consciousness: Cooperative, Oriented Anesthetic Plan: General, Spinal, Epidural Monitoring Plan: Standard Monitors Recovery Plan: PACU
--- NOTE | 2018-09-29 17:29 | Anesthesia Procedures ---
Date of Encounter: 09/29/18 Time of Encounter: 17:09 Procedures: Anesthesia - Epidural/Spinal Patient ID/Chart reviewed: Yes Patient examined: Yes OB Eval: Contractions: Non-stressed pattern Consent Obtained: Yes Supplemental Oxygen: None/Room Air Site Prep: Aseptic Technique, Sterile prep and drape, 0.5% Chlorhexidine/Alcohol Patient position: upright Local Anesthetic: Lidocaine 1% Amount of Local Anesthetic used: 2 Touhy Needle Gauge: 18 Touhy Needle Depth (cm): 6 Catheter Depth at Skin (cm): 10 Test Dose (1.5% Lido + Epi): Volume given (mls): 3 Test Dose Result: Negative Loading Dose: Other: 10ml from solution Loading Dose Administered: Thru Catheter Infusion Med: 0.125% Bupivacaine w/ 2 mcg/ml Fentanyl Infusion Rate (mls/hr): [address]: Tegaderm, Tape Interspace Used: L3-L4 Loss of Resistance (MAGGIE): Yes (saline) Blood: No CSF: Yes (25g purposeful, no inj) Paresthesia: No Procedure: vss though out, FHR stable per staff.
[2018-09-29] MEDS ORDERED: Nicotine 7 MG PATCH.TD24 TD SCH (19:30)
--- NOTE | 2018-09-29 19:54 | OB Labor Progress Note ---
Date of Encounter: 09/29/18 Time of Encounter: 19:52 Labor Progress Note - Subjective Subjective: Patient resting comfortably in bed. Pain is well controlled with epidural in place - Vital Signs Vital Signs: VSS - Cervix Cervix: 5/80/-2 BBOW - Heart Tones Heart Tones: 135 moderate variability with 15 x 15 accels with occasional late decel that resolve with repositioning - [place]ett Pickett: Contractions every 2-3 minutes palpate moderate - Interventions Interventions: AROM for copious amount of clear fluid. Fetus and patient tolerated well - Plan Physician notified: Yes Physician notified details: Notified Dr Rodarte of decels and POC. No new orders from Dr Rodarte at this time. Plan: Continue routine labor management GBS negative Titrate pitocin for adequate contractions Anticipate vaginal delivery POC per consult with Dr Rodarte
[2018-09-29] MEDS ORDERED: Epidural Premix (fent/bupiv) 110 ML EP SCH (20:00)
--- NOTE | 2018-09-29 21:48 | OB Labor Progress Note ---
Date of Encounter: 09/29/18 Time of Encounter: 21:45 Labor Progress Note - Subjective Subjective: Patient states she is starting to feel pain in her vagina again, but not feeling any contractions in her abdomen. - Vital Signs Vital Signs: VSS - Cervix Cervix: 7-8/90/0 - Heart Tones Heart Tones: 150 moderate variability with 15 x 15 accels, variables, and occasional earlies and late decels. - Shubuta Shubuta: Contractions every 2-3 minutes, palpate moderate - Interventions Interventions: Attempt to place IUPC without success; fetus vertex well applied to the cervix. Patient and fetus tolerated well. - Plan Physician notified: No Plan: Continue routine labor management GBS negative Titrate pitocin as needed Anticipate vaginal delivery POC per consult with Dr Rodarte
[2018-09-29] MEDS ORDERED: *HR* Ropivacaine/PF 0.5% 20 ML VIAL ONE (22:02)
--- NOTE | 2018-09-29 22:33 | OB/GYN Procedure Note ---
Delivery - Delivery Date: 09/29/18 Provider: Susanna Leon Intrapartum events: none Delivery induction: none Delivery augmentation: rupture of membranes, pitocin Delivery monitor: external FHT, external uterine Anesthesia: epidural Quantitated Blood Loss: 250 - (s) A Delivery Date: 09/29/18 Delivery Time: 22:14 Presentation: vertex Position: IONA Route of delivery: Gender: Female Viability: Viable Pounds: 5 Ounces: 13 Weight Gram: 2.63 kg at 1 minute: 9 at 5 mins: 9 Shoulder Dystocia: encountered Shoulder Dystocia Maneuvers: Marc maneuver, suprapubic pressure, Esteban Screw maneuver Shoulder dystocia time elapsed: 110 Seconds Placenta: spontaneous Cord: 3 umbilical vessels - Repair Episiotomy: none Laceration Description: Periurethral - Complications Delivery complications: none Delivery comments: Patient began to push spontaneously to of viable, vigorous female infant in the IONA position. No nuchal cord, no meconium. After delivery of head, shoulder dystocia encountered. Dr Rodarte called to room. Resolved in 110 seconds with Marc, Suprapubic pressure, and Esteban screw. Dr Rodarte arrives in room with delivery of body. Infant placed on maternal abdomen, warmed, dried, and stimulated. Cord double clamped and cut with assistance of FOB after pulsations ceased. Apgars 9 and 9 at one and five minutes of age. Infant placed skin to skin on mother's chest. Placenta delivered spontaneously and appears grossly intact with 3 vessel cord. Upon perineal inspection, a sma ll hemostatic urethral-clitoral laceration was noted and left to heal by second intention. After inspection, scant bleeding noted, fundus at U/2 and firm. EBL 250mL. and mother stable in recovery; recovery planned for 2 hours prior to transfer to post-. - Disposition Mom disposition: stable in LDR [place] disposition: stable in LDR
[2018-09-30] MEDS ORDERED: Oxytocin 20 units/ LR 1000 mL 20 UNIT/1,000 ML BAG IVC ONE (01:12)
[2018-09-30] MEDS ORDERED: Benzocaine/Menthol 56 GM AEROSOL SPRAY TP PRN (01:12)
[2018-09-30] MEDS ORDERED: Oxytocin 20 units/ LR 1000 mL 20 UNIT/1,000 ML BAG IVC SCH (01:12)
[2018-09-30] MEDS: Acetaminophen 325 MG TABLET PO PRN ×3 (02:01→19:50)
[2018-09-30] MEDS: Ibuprofen 600 MG TABLET PO PRN ×3 (02:01→16:42)
[2018-09-30 05:54] LABS: Basophils # 0.1 K/mcL (0.0-0.2); Basophils % 0.3 %; Eosinophils # 0.2 K/mcL (0.0-0.6); Eosinophils % 0.8 %; Hematocrit 29.8 % (35.3-44.9); Immature Granulocytes % 0.8 % (0-4); Lymphocytes # 4.2 K/mcL (0.6-4.6); Lymphocytes % 21.8 %; Mean Corpuscular HGB Conc 33.6 g/dL (31.6-35.5); Mean Corpuscular Hemoglobin 31.3 pg (28.0-33.3); Mean Corpuscular Volume 93.1 fL (83.0-100.0); Mean Platelet Volume 10.9 fL (9.4-12.4); Monocytes # 1.1 K/mcL (0.0-1.3); Monocytes % 5.6 %; Neutrophils # 13.7 K/mcL (1.6-8.9); Platelet Count 233 K/mcL (140-400); Red Cell Distribution Width 12.9 % (11.5-14.5); Segmented Neutrophils % 70.7 %; White Blood Count 19.4 K/mcL (4.3-11.1)
--- NOTE | 2018-09-30 08:23 | OB/GYN Progress Note ---
Date of Encounter: 09/30/18 Time of Encounter: 08:21 - Assessment and Plan (1) Vaginal delivery Current Visit: Yes Status: Acute Meeting all day 1 milestones Continue routine PP care Anesthesia consulted for back pain Anticipate discharge home tomorrow. (2) Acute blood loss anemia Current Visit: Yes Status: Acute Continue iron supplementation daily Subjective - Subjective Principal diagnosis: s/p Interval history: Feeling well. Out of bed without dizziness. Some perineal discomfort-using ice pack. Cramping minimal, using ibuprofen. Bottlefeeding every 2-3 hours. Some nipple soreness. Voiding without difficulty. Passing flatus, no BM yet. Tolerating regular diet. Patient reports sharp pain in her mid-back near epidural site. Patient reports: appetite normal, voiding normally, pain poorly controlled, ambulating normally [place]: doing well, bottle feeding Objective - Latest Vital Signs Latest vital signs: Vital Signs Temp Pulse Resp BP Pulse Ox 09/30/18 03:00 97.9 F 71 16 96/58 98 09/30/18 02:00 97.7 F 83 16 110/70 99 09/30/18 01:12 98.2 F 80 14 100/58 99 Intake and Output 09/29/18 09/30/18 09/30/18 23:59 07:59 15:59 Intake Total 0 / 0 Output Total 450 / 450 Balance -450 / -450 Intake: Oral 0 / 0 Output: Urine 450 / 450 Other: Weight 63 kg Patient Weight 09/30/18 23:59 Weight 63 kg - Exam Lungs: bilateral: normal Chest: Normal S1, Normal S2 Extremities: Present: normal Abdomen: Present: normal appearance, soft Uterus: Present: normal, firm Uterus Position: 2 Fingers Below Umbilicus, Midline Comments: 10cm area of midback noted to be swollen and tender to light palpation. Area is to the left of the spine. - Labs Labs: Laboratory Results - last 24 hr 09/29/18 09/29/18 09/29/18 13:52 13:52 14:00 WBC 18.7 H RBC 3.77 L Hgb 11.7 Hct 35.2 L MCV 93.4 MCH 31.0 MCHC 33.2 RDW 13.1 Plt Count 324 MPV 11.2 Immature Gran % 1.2 Seg Neutrophils % 71.6 Lymphocytes % 20.1 Monocytes % 5.7 Eosinophils % 1.1 Basophils % 0.3 Neutrophils # 13.4 H Lymphocytes # 3.8 Monocytes # 1.1 Eosinophils # 0.2 Basophils # 0.1 Urine Color Yellow Urine Clarity Cloudy A Urine pH 7.0 Ur Specific [place] 1.022 Urine Protein Negative Urine Glucose (UA) Normal Urine Ketones Negative Urine Blood Negative Urine Nitrite Negative Urine Bilirubin Negative Urine Urobilinogen Normal Ur Leukocyte Esterase Small H Urine Microscopic RBC 0-3 Urine Microscopic WBC 5-15 H Ur Squamous Epith Cells Many H Urine Bacteria Moderate H Hyaline Casts None Seen Ur Culture Indicated? YES A Urine Opiates Screen Negative Ur Buprenorphine Scrn Negative Ur Barbiturates Screen Negative Ur Phencyclidine Scrn Negative Ur Amphetamines Screen Negative U Benzodiazepines Scrn Negative Urine Cocaine Screen Negative U Marijuana (THC) Screen Negative Ur Drug Screen Interp See Below 09/30/18 04:42 WBC 19.4 H RBC 3.20 L Hgb 10.0 L D Hct 29.8 L MCV 93.1 MCH 31.3 MCHC 33.6 RDW 12.9 Plt Count 233 MPV 10.9 Immature Gran % 0.8 Seg Neutrophils % 70.7 Lymphocytes % 21.8 Monocytes % 5.6 Eosinophils % 0.8 Basophils % 0.3 Neutrophils # 13.7 H Lymphocytes # 4.2 Monocytes # 1.1 Eosinophils # 0.2 Basophils # 0.1 Urine Color Urine Clarity Urine pH Ur Specific [place] Urine Protein Urine Glucose (UA) Urine Ketones Urine Blood Urine Nitrite Urine Bilirubin Urine Urobilinogen Ur Leukocyte Esterase Urine Microscopic RBC Urine Microscopic WBC Ur Squamous Epith Cells Urine Bacteria Hyaline Casts Ur Culture Indicated? Urine Opiates Screen Ur Buprenorphine Scrn Ur Barbiturates Screen Ur Phencyclidine Scrn Ur Amphetamines Screen U Benzodiazepines Scrn Urine Cocaine Screen U Marijuana (THC) Screen Ur Drug Screen Interp
--- NOTE | 2018-09-30 08:37 | Discharge Summary ---
Date of Encounter: 09/30/18 Time of Encounter: 08:35 - Discharge Diagnosis (1) Vaginal delivery Priority: Primary Status: Acute Comments: Feeling well Tolerating regular diet Pain well-controlled with by mouth pain meds Ambulating independently Voiding independently Lochia light Passing flatus, no BM yet Vital signs stable Discharge home today (2) Acute blood loss anemia Priority: Secondary Status: Acute Comments: Continue iron supplementation daily - Discharge Medications Prescriptions: New Ferrous Sulfate 325 mg PO 0800 #30 tablet Acetaminophen [Tylenol] 650 mg PO Q6HR PRN tablet PRN Reason: Mild Pain Ibuprofen [Motrin] 600 mg PO Q6HR PRN #30 tablet PRN Reason: Cramping Benzocaine/Menthol [place] [Dermoplast [place]] 1 appl TP QID PRN aerosol PRN Reason: See Comments Docusate [Colace] 100 mg PO BID #30 capsule Continued Caplet 1 tab PO DAILY Home Medications: Caplet 1 tab PO DAILY 07/20/18 [History] Acetaminophen [Tylenol] 650 mg PO Q6HR PRN tablet 09/30/18 [Rx] Benzocaine/Menthol [place] [Dermoplast [place]] 1 appl TP QID PRN aerosol 09/30/18 [Rx] Docusate [Colace] 100 mg PO BID #30 capsule 09/30/18 [Rx] Ferrous Sulfate 325 mg PO 0800 #30 tablet 09/30/18 [Rx] Ibuprofen [Motrin] 600 mg PO Q6HR PRN #30 tablet 09/30/18 [Rx] Allergies/Adverse Reactions: Allergy/AdvReac Type Severity Reaction Status Date / Time hydrocodone Allergy Hives Verified 09/29/18 13:48 morphine Allergy Rash Verified 09/29/18 13:48 Data Procedures and tests throughout hospitalization: Laboratory Tests 09/29/18 09/29/18 09/29/18 13:52 13:52 14:00 WBC 18.7 H RBC 3.77 L Hgb 11.7 Hct 35.2 L MCV 93.4 MCH 31.0 MCHC 33.2 RDW 13.1 Plt Count 324 MPV 11.2 Immature Gran % 1.2 Seg Neutrophils % 71.6 Lymphocytes % 20.1 Monocytes % 5.7 Eosinophils % 1.1 Basophils % 0.3 Neutrophils # 13.4 H Lymphocytes # 3.8 Monocytes # 1.1 Eosinophils # 0.2 Basophils # 0.1 Urine Color Yellow Urine Clarity Cloudy A Urine pH 7.0 Ur Specific [place] 1.022 Urine Protein Negative Urine Glucose (UA) Normal Urine Ketones Negative Urine Blood Negative Urine Nitrite Negative Urine Bilirubin Negative Urine Urobilinogen Normal Ur Leukocyte Esterase Small H Urine Microscopic RBC 0-3 Urine Microscopic WBC 5-15 H Ur Squamous Epith Cells Many H Urine Bacteria Moderate H Hyaline Casts None Seen Ur Culture Indicated? YES A Urine Opiates Screen Negative Ur Buprenorphine Scrn Negative Ur Barbiturates Screen Negative Ur Phencyclidine Scrn Negative Ur Amphetamines Screen Negative U Benzodiazepines Scrn Negative Urine Cocaine Screen Negative U Marijuana (THC) Screen Negative Ur Drug Screen Interp See Below 09/30/18 04:42 WBC 19.4 H RBC 3.20 L Hgb 10.0 L D Hct 29.8 L MCV 93.1 MCH 31.3 MCHC 33.6 RDW 12.9 Plt Count 233 MPV 10.9 Immature Gran % 0.8 Seg Neutrophils % 70.7 Lymphocytes % 21.8 Monocytes % 5.6 Eosinophils % 0.8 Basophils % 0.3 Neutrophils # 13.7 H Lymphocytes # 4.2 Monocytes # 1.1 Eosinophils # 0.2 Basophils # 0.1 Urine Color Urine Clarity Urine pH Ur Specific [place] Urine Protein Urine Glucose (UA) Urine Ketones Urine Blood Urine Nitrite Urine Bilirubin Urine Urobilinogen Ur Leukocyte Esterase Urine Microscopic RBC Urine Microscopic WBC Ur Squamous Epith Cells Urine Bacteria Hyaline Casts Ur Culture Indicated? Urine Opiates Screen Ur Buprenorphine Scrn Ur Barbiturates Screen Ur Phencyclidine Scrn Ur Amphetamines Screen U Benzodiazepines Scrn Urine Cocaine Screen U Marijuana (THC) Screen Ur Drug Screen Interp Labs on day of discharge: Labs from last 24 hours 09/30/18 09/29/18 09/29/18 04:42 14:00 13:52 WBC 19.4 H 18.7 H RBC 3.20 L 3.77 L Hgb 10.0 L D 11.7 Hct 29.8 L 35.2 L MCV 93.1 93.4 MCH 31.3 31.0 MCHC 33.6 33.2 RDW 12.9 13.1 Plt Count 233 324 MPV 10.9 11.2 Immature Gran % 0.8 1.2 Seg Neutrophils % 70.7 71.6 Lymphocytes % 21.8 20.1 Monocytes % 5.6 5.7 Eosinophils % 0.8 1.1 Basophils % 0.3 0.3 Neutrophils # 13.7 H 13.4 H Lymphocytes # 4.2 3.8 Monocytes # 1.1 1.1 Eosinophils # 0.2 0.2 Basophils # 0.1 0.1 Urine Color Yellow Urine Clarity Cloudy A Urine pH 7.0 Ur Specific [place] 1.022 Urine Protein Negative Urine Glucose (UA) Normal Urine Ketones Negative Urine Blood Negative Urine Nitrite Negative Urine Bilirubin Negative Urine Urobilinogen Normal Ur Leukocyte Esterase Small H Urine Microscopic RBC 0-3 Urine Microscopic WBC 5-15 H Ur Squamous Epith Cells Many H Urine Bacteria Moderate H Hyaline Casts None Seen Ur Culture Indicated? YES A Urine Opiates Screen Ur Buprenorphine Scrn Ur Barbiturates Screen Ur Phencyclidine Scrn Ur Amphetamines Screen U Benzodiazepines Scrn Urine Cocaine Screen U Marijuana (THC) Screen Ur Drug Screen Interp 09/29/18 13:52 WBC RBC Hgb Hct MCV MCH MCHC RDW Plt Count MPV Immature Gran % Seg Neutrophils % Lymphocytes % Monocytes % Eosinophils % Basophils % Neutrophils # Lymphocytes # Monocytes # Eosinophils # Basophils # Urine Color Urine Clarity Urine pH Ur Specific [place] Urine Protein Urine Glucose (UA) Urine Ketones Urine Blood Urine Nitrite Urine Bilirubin Urine Urobilinogen Ur Leukocyte Esterase Urine Microscopic RBC Urine Microscopic WBC Ur Squamous Epith Cells Urine Bacteria Hyaline Casts Ur Culture Indicated? Urine Opiates Screen Negative Ur Buprenorphine Scrn Negative Ur Barbiturates Screen Negative Ur Phencyclidine Scrn Negative Ur Amphetamines Screen Negative U Benzodiazepines Scrn Negative Urine Cocaine Screen Negative U Marijuana (THC) Screen Negative Ur Drug Screen Interp See Below Preliminary micro results at discharge 09/29/18 13:52 Urine Culture - Preliminary Urine,Clean Catch Culture is incubating. Date of admission: 09/29/18 16:44 Primary care physician: PCP NONE Discharging clinician: Susanna Oconnor Anticipated date of discharge: 09/30/18 - Patient Status Disposition: Home, Self-Care Condition: Good Functional capacity at discharge: independent ambulation Overall status at discharge: patient is progressing back to baseline - Discharge Instructions Follow Up With: NONE,PCP [Primary Care Provider] - Timothy Menjivar MD [Partnered Physician] - - Diet and Activity Activity: increase activity as tolerated Diet: regular diet Hospital Course Reason for admission: active labor, IUP at term Delivery: Episiotomy: none Laceration: other (periurethral) Other procedures: none complications: other (back pain around epidural site) Discharge diagnosis: IUP at term delivered [place] baby: female Time Attestation: Total time spent providing and/or coordinating discharge services: Time Spent: Less than 30 minutes Exam - Constitutional Vitals: Temp Pulse Resp BP Pulse Ox 97.9 F 71 16 96/58 98 09/30/18 03:00 09/30/18 03:00 09/30/18 03:00 09/30/18 03:00 09/30/18 03:00 General appearance IM: A&O X 3, pleasant, no acute distress, answers questions appropriately - Respiratory Respiratory exam: Present: CTAB - Cardiovascular Cardiovascular exam IM: Present: RRR, +S1, +S2 - GI/Abdominal GI/Abdominal exam IM: normal bowel sounds, no peritoneal signs - Rectal Rectal exam: deferred - Uterine Tone: Firm Uterus Position: 2 Fingers Below Umbilicus, Midline - Extremities Exam Extremities exam IM: Present: full ROM, normal capillary refill, normal inspection, radial pulses palpable and symmetrical - Neurological Exam Neurological exam: alert, CN II-XII intact, normal gait, oriented X3, reflexes normal, no focal deficits, strengths equal and symetr throughout - Psychiatric Additional comments: Patient reports history of anxiety and depression. Signs and symptoms of depression discussed with patient and partner and both verbalized understanding of when to seek help.
[2018-09-30] MEDS ORDERED: Prenatal Vit/FA 1 EACH TABLET PO SCH (09:00)
--- NOTE | 2018-09-30 09:01 | Anesthesia Progress Note ---
Date of Encounter: 09/30/18 Time of Encounter: 08:53 Anesthesia Note - Note Note: 09/30/18 08:53 called to Obstetrics unit room 19 by core machine tender for patient complaints of mid-back pain, onset approximately 0100 this am. States got epidural around 1700 yesterday, no problems with procedure. Delivered at approximately 2200 last pm. States pain started about when the "epidural started wearing off" around 0100 this am. States is sharp in nature, intermittant. Denies radiation or numbness/tingling to extremeties. Upon exam of back, epidural insertion site free of redness, edema and/or drainage. Location of pain is 2-3 inches above insertion site of epidural. Patient vital signs through the night and this am are WNL and patient afebrile. Instructed pain to rest, take OTC ibuprofen or tylenol if as needed for pain and to F/U with [facility]OR [facility] if pain persists or worsens.
[2018-09-30 22:12] VITALS: BP 107/68
== END 2018-09-30 23:00 | disposition home or self-care (01) | DRG 560 ==
LOC: 1NENULAB → 1NENUOBS 09-30 00:58
PROVIDERS: ADMIT Obstetrics & Gynecology; ATTEND Obstetrics & Gynecology